=== PATIENT | female | born 1960 | race Hispanic/Latino ===

== ENCOUNTER 2017-07-13 18:56 | Inpatient (IN) | payer MEDICARE, MEDICAID ==
[2017-07-13 21:18] LABS: #Basophils 0.1 thou/uL (0.0-0.2); #Lymphocytes 2.6 thou/uL (1.20-3.40); #Monocytes 0.4 thou/uL (0.11-0.59); #Neutrophils 5.1 thou/uL (1.40-6.50); %Basophils 1.2 % (0.0-1.0); %Eosinophils 0.2 % (0.0-10.0); %Lymphocytes 31.5 % (21.0-51.0); Hematocrit 43.2 % (36.0-47.0); Mean Platelet Volume 6.6 fL (7.4-10.4); Red Blood Cell (RBC) Count 4.75 mill/uL (4.20-5.40); White Blood Cell (WBC) Count 8.1 thou/uL (4.8-10.8)
--- NOTE | 2017-07-13 21:21 | RAD ---
CHEST ONE VIEW PORTABLE: History: 57-year-old female with history of epilepsy. FINDINGS: Monitor leads overlie the chest. Inspiration is suboptimal with some vascular crowding in the lower lungs. No confluent pneumonia, overt edema, or pleural effusion. IMPRESSION: Poor inspiratory effort with some vascular crowding in the lung bases. No overt acute intrathoracic disease. No evidence for pneumonia. POS: [facility]
--- NOTE | 2017-07-13 21:25 | CT ---
NONCONTRAST HEAD CT: History: Epilepsy. Medical ==== into [facility] due to [place] and [place] psychiatric boarding. Patient was talking about keeping a knife under her pillow and killing her family. Previous psychiatric admissions. Comparison: None. Technique: Noncontrast head CT is performed from skull base to skull vertex. FINDINGS: No parenchymal hemorrhage, no extraaxial hematoma. No midline shift. Basilar cisterns are patent. Br ain volume is age appropriate. Cortical vega white matter differentiation is preserved. Ventricles and sulci are patent and symmetric. There is hyperostosis from talus interne. Calvarium is intact. Adequate aeration of the sinuses and mastoid air cells. IMPRESSION: No acute intracranial process. POS: [facility]
[2017-07-13 21:38] LABS: ALT (SGPT) 50 U/L (8-55); AST (SGOT) 49 U/L (5-34); Alkaline Phosphatase 95 U/L (40-150); Anion Gap 12 mmol/L (10-20); BUN (Urea Nitrogen) 17 mg/dL (9.8-20.1); Bilirubin, Total 0.4 mg/dL (0.2-1.2); Calc. Creatinine Clearance 0 mL/min (70-130); Calcium 9.7 mg/dL (7.8-10.44); Carbon Dioxide 25 mmol/L (22-29); Chloride 104 mmol/L (98-107); Estimated GFR-MDRD 85; Globulin 3.6 g/dL (2.4-3.5); Protein, Total 7.5 g/dL (6.0-8.3)
[2017-07-13 21:56] LABS: Bilirubin Negative (Negative); Blood, Urine Negative (Negative); Glucose, Urine (Dipstick) Negative (Negative); Ketone, Urine Negative (Negative); Nitrite Negative (Negative); Protein, Urine (Dipstick) Negative (Neg-Trace); Urobilinogen 0.2 mg/dL (0.2-1.0)
[2017-07-13 21:58] LABS: Bacteria/HPF 2+ HPF (None Seen); RBC/HPF 0-3 HPF (0-3); Squamous Epithelial 21-50 HPF (0-3)
[2017-07-13 21:59] LABS: Hyaline Casts/LPF 0-3 HYALINE CAST LPF (0-3 Hyaline)
[2017-07-14] MEDS ORDERED: Lorazepam 2 MG/ML VIAL SLOW IVP PRN ×2 (00:03→15:09)
[2017-07-14] MEDS ORDERED: cefTRIAXone\\ROCEPHIN 1 GM VIAL ONE (00:41)
[2017-07-14] MEDS ORDERED: levETIRAcetam In NaCl (Iso-Os) 1,000 MG in Premix Bag 1 BAG IVPB SCH ×2 (00:45)
[2017-07-14] MEDS ORDERED: Acetaminophen 325 MG TAB PO PRN (02:53)
[2017-07-14] MEDS ORDERED: Ondansetron HCl/PF 4 MG/2 ML Vial IVP PRN ×2 (02:53→05:44)
[2017-07-14] MEDS ORDERED: Ondansetron ODT 4 MG TAB SL PRN (02:53)
[2017-07-14] MEDS ORDERED: cefTRIAXone\\ROCEPHIN 1 GM in Sodium Chloride 0.9% 100 ML IVPB SCH (05:15)
[2017-07-14] MEDS ORDERED: Senokot 8.6 MG TAB PO PRN (05:44)
[2017-07-14] MEDS ORDERED: Benzonatate 100 MG CAP PO PRN (05:44)
[2017-07-14] MEDS ORDERED: Diabetic Tussin 200 MG/10 ML UDCUP PO PRN (05:44)
[2017-07-14] MEDS ORDERED: Nitroglycerin 0.4 MG TAB (25 Tab Bottle) SL PRN (05:44)
[2017-07-14] MEDS ORDERED: hydrALAZINE 20 MG/ML VIAL SLOW IVP PRN (05:44)
[2017-07-14] MEDS ORDERED: Loratadine 10 MG TAB PO PRN (05:44)
[2017-07-14] MEDS ORDERED: cloNIDine 0.1 MG TAB PO PRN (05:44)
[2017-07-14] MEDS ORDERED: Insulin Regular 300 UNITS/3 ML VIAL SC PRN (05:46)
[2017-07-14] MEDS ORDERED: Dextrose 5% in Water 1,000 ML IV PRN (05:46)
[2017-07-14] MEDS ORDERED: Dextrose 50% Abboject 50 ML SYRINGE SLOW IVP PRN (05:46)
[2017-07-14] MEDS ORDERED: Cefepime 1 GM, Admixture Fee 1 EACH in Sterile Water 10 ML SLOW IVP SCH (08:30)
[2017-07-14] MEDS ORDERED: clonazePAM 0.5 MG TAB PO SCH ×2 (09:00)
[2017-07-14] MEDS ORDERED: levETIRAcetam 500 MG TAB PO SCH (09:00)
[2017-07-14] MEDS ORDERED: FLU VACC QS2017-18 36 mo. & older 0.5 ML SYRINGE IM ONE (09:00)
[2017-07-14] MEDS: Escitalopram Oxalate 20 mg Tablet PO SCH (09:20)
[2017-07-14] MEDS: Lisinopril 5 MG TAB PO SCH (09:21)
[2017-07-14] MEDS: Sodium Chloride 0.9% 1,000 ML IV SCH ×2 (09:21→21:02)
--- NOTE | 2017-07-14 09:32 | HP ---
DATE OF ADMISSION: 07/14/2017 PRIMARY CARE PHYSICIAN: Dr. Fletcher. Patient is a city call. CHIEF COMPLAINT: Seizures and urinary tract infection. HISTORY OF PRESENT ILLNESS: Ms. Frankel is a 57-year-old female with past medical history of seizure disorder, hypothyroidism, dyslipidemia, hypertension, diabetes, who presented as a transfer from [facility] for seizures. History is obtained by the record review as the patient is no nconversant or is significantly altered and is not providing any history at this time. Further deta ils obtained by discussion with admitting ER physician, Dr. Flores. According to the reports, Ms. Frankel has been admitted at [facility] for suicidal and homicidal ideation. She is currently on the [facility] list for psychiatric admission. She has been on the psychiatric boarding since 07/06/2017. Hist ory of multiple previous psychiatric administration with psychotic . [facility] has evaluated the patient and she is waiting for placement. According to the reports, the patient had about a 15-20 second episode of seizure-like activity with facial muscles tightening up and face contorting and some jerky movements of the eyes and hands. S he is on Keppra 500 b.i.d. and Clonazepam 0.5 mg p.o. b.i.d., which she was receiving at the [facility]. There was no urinary or fecal incontinence, no tongue biting. She was transferred here for [facility] seizures as apparently [facility] has no neurologist site controller. In the emergency room, the patient was found to have similar episodes. She has received IV dose of Keppra. She was found to also have a urinary tract infection and received Rocephin. She is otherwi se hemodynamically stable and is being admitted to the stroke floor for possible breakthrough seizur es. There is some question that the patient started to have seizure-like activity once she was bein g cleared for [facility] admission. This raises the question of secondary gain. PAST MEDICAL HISTORY: 1. Diabetes mellitus type 2. 2. Seizure disorder. 3. Hypertension. 4. Dyslipidemia. 5. Hypothyroidism. 6. Spinal stenosis. PAST SURGICAL HISTORY: Unknown. PSYCHIATRIC HISTORY: Bipolar, schizophrenia. ALLERGIES: ALPRAZOLAM, HALDOL and XANAX. CURRENT MEDICATIONS: As listed in the ER records include Lexapro 20 mg daily, clonazepam 0.5 mg b.i .d., Vistaril 50 mg at bedtime, glipizide 5 mg daily, levothyroxine 100 mcg daily, lisinopril 10 mg daily, pravastatin 40 mg daily, Keppra 500 p.o. b.i.d., metformin 1000 mg b.i.d. FAMILY HISTORY: Unable to obtain as the patient does not reply the answers to the questions appropr iately. SOCIAL HISTORY: Unable to obtain for the same reason as stated above. REVIEW OF SYSTEMS: Largely unobtainable, because the patient is not responding to any questions. S he, however, denied any discomfort at this time and on repeated asking she had one word seizure. PHYSICAL EXAMINATION: VITAL SIGNS: Stable, blood pressure 148/94, saturating 94% on room air, respirations 18, pulse 90, temperature 98.5. GENERAL: The patient is awake and appears alert and oriented to self at the very least. She has ge neralized shaking of her left arm, which stops when she holds it with her right arm. No acute distr ess. Appears nontoxic. HEENT: Mucous membrane is moist and pink. No oropharyngeal exudate or erythema. Head is normoceph alic, atraumatic. Pupils are equal, reactive to light and accommodation. Extraocular movements int act. NECK: Supple without any lymphadenopathy, JVD or bruit. CHEST: Clear to auscultation without any wheezing, rales or rhonchi. Rate and rhythm is regular wi thout any murmur, rubs or gallops. ABDOMEN: Obese, soft, nontender, nondistended with positive bowel sounds. EXTREMITIES: Free of any cyanosis, clubbing, or edema. NEUROLOGIC: No muscle weakness. She has pill rolling tremors in her left hand, which stopped as so on as she engages her hand. Affect appears flat, difficulty with concentration. The patient is abl e to tell me the name of her children and her name, but is unable to tell me where she is and why an d does not answer most of my questions appropriately. SKIN: Free of any rashes or bruises. Feel warm and dry to touch. PSYCHIATRIC: Flat affect. LABORATORY DATA: CBC is unremarkable. Serum chemistry shows blood sugar of 131, otherwise unremark able. Prolactin 6.18. Urinalysis are WBC and bacteria along with multiple squamous epithelial cell s, Keppra level of 6.2. IMPRESSION AND PLAN: 1. Breakthrough seizures versus psychiatric manifestation. At this time, it is unclear if the fortunato ent actually had seizures. She seemed to be having these movements during my interview as well and she was able to describe it in one word \\\\"seizure\\\\". Her prolactin level is normal as well as her levetiracetam level. She did get one dose of IV Keppra in the emergency room and, at this time, we will restart her on oral medications. Add p.r.n. Ativan for any breakthrough seizures. At this ti me, it is difficult to tell whether this is seizure or just psychiatric manifestation of her illness . We will consult Neurology for further recommendations. 2. Urinary tract infection, treated with IV antibiotic and send urine for culture. 3. Diabetes mellitus. The patient will be started on insulin sliding scale and we will hold her me tformin as she cannot reliably eat. Monitor a.c. and at bedtime Accu-Cheks and add normal saline. 4. History of hypertension, currently controlled. Restart home medications once confirmed. 5. History of homicidal and suicidal ideations. The patient will be released to [facility] after her sei zure episodes are controlled or the breakthrough seizures are ruled out.
[2017-07-14] MEDS: clonazePAM 0.5 MG TAB PO SCH ×2 (16:39→21:09)
[2017-07-14] MEDS: traMADol HCl 50 MG TAB PO PRN (16:59)
[2017-07-14] MEDS: hydrOXYzine Pamoate 25 mg Capsule PO SCH (21:09)
--- NOTE | 2017-07-15 00:47 | CON ---
DATE OF CONSULTATION: 07/14/2017 REFERRING PROVIDER: Dr. Lilliana Colindres. REASON FOR CONSULTATION: Seizure. HISTORY OF PRESENT ILLNESS: Ms. Frankel is a 57-year-old female who has been considered for evaluatio n of seizure. History is obtained from the patient's medical chart as the patient is a very poor hi storian and does not provide much of the information during my conversation. Apparently, the patien t was admitted to [facility] for suicidal ideation and severe depression. She w as supposed to be transferred to [facility] for treatment of her underlying depression. She was supposed to be discharged to a facility; however, prior to being transferred, she developed a seizure-like ep isode. Due to the fact that the [facility] does not have any neurological facul ty environmental quality analyst, the patient was transferred over here. According to nurse, the patient has been having jerking episode intermittently. These episodes are waxing and waning. During that time, she is abl e to converse and able to follow commands. When I asked when she started having seizure, she report ed that she started having seizures after she was upset about something. When asked how long she gaytan d seizures for, she kept repeating the same answer that she has seizures only when she is getting up set. PAST MEDICAL HISTORY: Significant for hypertension, diabetes, dyslipidemia, hypothyroidism, history of depression and anxiety, bipolar and schizophrenia, and questionable seizure disorder. SOCIAL HISTORY: She does not answer the question. CURRENT MEDICATIONS: Please review MAR. ALLERGIES: Include HALDOL and XANAX. FAMILY HISTORY: Noncontributory. REVIEW OF SYSTEMS: Unable to perform. PHYSICAL EXAMINATION: VITAL SIGNS: Blood pressure 165/91, pulse of 106, temperature of 98.4, respirations of 16, O2 sats of 95% on room air. GENERAL: Well-developed, well-nourished female, in no apparent distress. RESPIRATORY: Clear to auscultation bilaterally. CARDIOVASCULAR: Regular rate and rhythm. NEUROLOGIC: Mental status: The patient is awake, alert, oriented x3. Speech and language appears fluent. Cranial nerves: Pupils are 3 mm and reactive. Visual choi are full to threat. Extraocu lar muscles are intact. No nystagmus is noted. Face is symmetric. Tongue and uvula are midline. Motor exam showed normal tone and bulk, with a 5/5 strength in both upper and lower extremities. Sh justina was noted to have nonrhythmic jerking of the left upper extremity that was waxing and waning that especially was resolved when I was able to distract her as well as when I asked her to close her eye s and lift her arm up. Sensory: She responds to pain in both upper and lower extremities. Deep te ndon reflexes 2+ reflexes in both upper and lower extremities. Babinski: Plantar responses flexion bilaterally. Coordination: Gait and Romberg could not be tested. LABORATORY DATA: Reviewed, which included CBC, CMP, urinalysis, Keppra level, which is significant for urinalysis showing moderate leukocyte esterase, 7-10 wbc and 2+ bacteria. IMAGING STUDIES: CT head without contrast was reviewed, which showed no acute intracranial abnormal ity. IMPRESSION: 1. Convulsions. 2. Depression. 3. Most probable conversion disorder. ASSESSMENT AND PLAN: Ms. Frankel is a 57-year-old female who presented with the seizure-like episode. During my evaluation, she was having waxing and waning episodes of left arm jerking, and during that period, she was able to converse appropriately and able to follow commands. 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 I would obtain EEG on tomorrow morning, and if that does n ot show any seizure-like activity, then no further workup needs to be performed. For now, continue on the Keppra 500 mg b.i.d. However, if the EEG is normal with seizure-like activity that she is gaytan ving, then she can be discontinued on Keppra as this would not be helpful in her ongoing treatment o f depression. Thank you for your consultation.
[2017-07-15] MEDS ORDERED: cefTRIAXone\\ROCEPHIN 1 GM, Syringe 0.4 ML in Sterile Water 9.6 ML SLOW IVP SCH (01:00)
[2017-07-15] MEDS: clonazePAM 0.5 MG TAB PO SCH ×2 (08:42→20:24)
[2017-07-15] MEDS: Valbenazine Tosylate [Ingrezza] 40 MG PO SCH (08:42)
[2017-07-15] MEDS: Lisinopril 5 MG TAB PO SCH (08:42)
[2017-07-15] MEDS: Escitalopram Oxalate 20 mg Tablet PO SCH (08:42)
[2017-07-15] MEDS: Sodium Chloride 0.9% 1,000 ML IV SCH ×2 (10:08→23:34)
--- NOTE | 2017-07-15 13:13 | PDOC.PN ---
- Subjective Encounter Start Date: 07/15/17 Encounter Start Time: 07:00 Pt seen for followup re seizure. Reports having ongoing seizures. No chest pain, shortness of breath, fevers or chills. - Objective MAR Reviewed: Yes Vital Signs & Weight: Vital Signs (12 hours) Temp Pulse Resp BP Pulse Ox 07/15/17 11:15 98.3 F 86 18 148/80 H 94 L 07/15/17 08:42 86 07/15/17 08:00 99.6 F 86 18 07/15/17 07:10 99.6 F 86 16 147/86 H 92 L 07/15/17 03:09 98.5 F 90 12 157/89 H 93 L Weight Weight 200 lb 11.2 oz I&O: 07/14/17 07/15/17 07/16/17 06:59 06:59 06:59 Intake Total 958 Balance 958 Result Diagrams: 07/13/17 21:09 07/13/17 21:09 Additional Labs: Accuchecks 07/15/17 07/15/17 07/14/17 10:41 06:08 20:46 POC Glucose 127 H 121 H 103 07/14/17 17:25 POC Glucose 113 H EKG Reviewed by me: Yes (Tele: NSR) Phys Exam - Physical Examination Obese HEENT: PERRLA, moist MMs, sclera anicteric, oral pharynx no lesions Neck: no nodes, no JVD, supple, full ROM Respiratory: no wheezing, no rales, no rhonchi, clear to auscultation bilateral Cardiovascular: RRR, no significant murmur, no rub Gastrointestinal: soft, non-tender, no distention, positive bowel sounds Musculoskeletal: pulses present Neurological: moves all 4 limbs Lymphatic: no nodes Psychiatric: normal affect Deviation from normal: Oriented to person and place, not to time Skin: no rash, normal turgor, cap refill <2 seconds Dx/Plan (1) Seizure Code(s): R56.9 - UNSPECIFIED CONVULSIONS Status: Acute (2) DM2 (diabetes mellitus, type 2) Status: Chronic (3) HTN (hypertension) Code(s): I10 - ESSENTIAL (PRIMARY) HYPERTENSION Status: Chronic (4) Dyslipidemia Code(s): E78.5 - HYPERLIPIDEMIA, UNSPECIFIED Status: Chronic (5) Hypothyroidism Code(s): E03.9 - HYPOTHYROIDISM, UNSPECIFIED Status: Chronic (6) Spinal stenosis Code(s): M48.00 - SPINAL STENOSIS, SITE UNSPECIFIED Status: Chronic - Plan * . seizure vs pseudoseizure. Continue Keppra, await EEG. Continue accuchecks, insulin sliding scale. Monitor vital signs, titrate antihypertensives as needed. Check TSH Review of Systems - Review of Systems Constitutional: negative: Fever, Chills, Sweats, Weakness, Malaise Eyes: Vision Change Respiratory: negative: Cough, Dry, Shortness of Breath, Hemoptysis, SOB with Excertion, Pleuritic Pain, Sputum, Wheezing Cardiovascular: negative: Chest Pain, Palpitations, Orthopnea, Paroxysmal Noc. Dyspnea, Edema, Light Headedness Gastrointestinal: negative: Nausea, Vomiting, Abdominal Pain, Diarrhea, Constipation, Melena, Hematochezia Genitourinary: negative: Dysuria, Frequency, Incontinence, Hematuria, Retention Neurological: Seizures. negative: Weakness, Numbness, Incoordination, Change in Speech, Confusion - Medications/Allergies Allergies/Adverse Reactions: Allergies Allergy/AdvReac Type Severity Reaction Status Date / Time alprazolam [From Xanax] Allergy Verified 07/14/17 00:07 haloperidol [From Haldol] Allergy Verified 07/14/17 00:07 zolpidem [From Ambien] Allergy Verified 07/14/17 02:35 Medications: Current Medications Benzonatate (Tessalon) 100 mg PO Q4H PRN PRN Reason: Cough Bisacodyl (Dulcolax) 10 mg PO DAILYPRN PRN PRN Reason: Constipation Clonazepam (Klonopin) 0.5 mg PO BID [facility] Last Admin: 07/15/17 08:42 Dose: Not Given Clonidine (Catapres) 0.1 mg PO Q4H PRN PRN Reason: Systolic BP > 180 Dextrose/Water (Dextrose 50%) 25 gm SLOW IVP PRN PRN PRN Reason: Hypoglycemia Escitalopram Oxalate (Lexapro) 20 mg PO DAILY [facility] Last Admin: 07/15/17 08:42 Dose: Not Given Glucagon (Glucagon) 1 mg IM PRN PRN PRN Reason: Hypoglycemia Guaifenesin (Robitussin Sf) 200 mg PO Q4H PRN PRN Reason: Cough Hydralazine HCl (Apresoline) 10 mg SLOW IVP Q4H PRN PRN Reason: Systolic BP > 180 Hydroxyzine Pamoate (Vistaril) 25 mg PO HS [facility] Last Admin: 07/14/17 21:09 Dose: Not Given Sodium Chloride (Normal Saline 0.9%) 1,000 mls @ 75 mls/hr IV .[id number] [facility] Last Admin: 07/15/17 10:08 Dose: 1,000 mls Dextrose/Water (D5w) 1,000 mls @ 0 mls/hr IV .Q0M PRN; As Directed PRN Reason: Hypoglycemia Levetiracetam 500 mg/ Device 100 mls @ 200 mls/hr IVPB BID [facility] Last Admin: 07/15/17 10:07 Dose: 100 mls Insulin Human Regular (Humulin R) 0 units SC .MODERATE SLIDING SC PRN PRN Reason: Moderate Correctional Scale Insulin Human Regular (Humulin R) 0 units SC .BEDTIME SLIDING SC PRN PRN Reason: Bedtime Correctional Scale Lisinopril (Zestril) 10 mg PO DAILY [facility] Last Admin: 07/15/17 08:42 Dose: Not Given Loratadine (Claritin) 10 mg PO DAILYPRN PRN PRN Reason: Sinus Symptoms Lorazepam (Ativan) 1 mg SLOW IVP Q2H PRN PRN Reason: Seizures Nitroglycerin (Nitrostat) 0.4 mg SL Q5MIN PRN PRN Reason: Chest Pain Ondansetron HCl (Zofran) 4 mg IVP Q6H PRN PRN Reason: Nausea/Vomiting Valbenazine Tosylate ([Ingrezza] 40 Mg) 0 each PO DAILY [facility] Last Admin: 07/15/17 08:42 Dose: Not Given Senna (Senokot) 2 tab PO HSPRN PRN PRN Reason: Constipation Tramadol HCl (Ultram) 50 mg PO Q4H PRN PRN Reason: Moderate Pain (4-6) Last Admin: 07/14/17 16:59 Dose: 50 mg
[2017-07-15] MEDS: traMADol HCl 50 MG TAB PO PRN (20:21)
[2017-07-15] MEDS: hydrOXYzine Pamoate 25 mg Capsule PO SCH (20:24)
[2017-07-16] MEDS: Escitalopram Oxalate 20 mg Tablet PO SCH (08:56)
[2017-07-16] MEDS: Lisinopril 5 MG TAB PO SCH (08:56)
[2017-07-16] MEDS: clonazePAM 0.5 MG TAB PO SCH ×2 (08:56→20:37)
[2017-07-16] MEDS ORDERED: levETIRAcetam 500 MG TAB PO SCH (09:00)
--- NOTE | 2017-07-16 10:00 | PDOC.PN ---
- Subjective Encounter Start Date: 07/16/17 Encounter Start Time: 07:00 Pt seen for followup re: diabetes mellitus 2. Denies chest pain, shortness of breath, fever or chills. No nausea or vomiting. - Objective MAR Reviewed: Yes Vital Signs & Weight: Vital Signs (12 hours) Temp Pulse Resp BP BP BP Pulse Ox 07/16/17 08:56 67 122/84 07/16/17 08:00 98.3 F 67 18 07/16/17 07:00 98.3 F 67 18 122/84 95 07/16/17 03:49 98.3 F 74 18 113/66 94 L 07/16/17 00:03 98.0 F 76 18 132/73 94 L Weight Weight 199 lb 12.8 oz I&O: 07/15/17 07/16/17 07/17/17 06:59 06:59 06:59 Intake Total 958 1855 Balance 958 1855 Result Diagrams: 07/13/17 21:09 07/13/17 21:09 Additional Labs: Accuchecks 07/16/17 07/15/17 07/15/17 05:39 20:28 17:06 POC Glucose 115 H 177 H 105 07/15/17 10:41 POC Glucose 127 H EKG Reviewed by me: Yes (Tele: NSR) Phys Exam - Physical Examination Obesity HEENT: moist MMs Neck: supple Respiratory: clear to auscultation bilateral Cardiovascular: RRR Gastrointestinal: soft Musculoskeletal: pulses present Neurological: moves all 4 limbs Psychiatric: normal affect Skin: no rash Dx/Plan (1) DM2 (diabetes mellitus, type 2) Status: Chronic (2) HTN (hypertension) Code(s): I10 - ESSENTIAL (PRIMARY) HYPERTENSION Status: Chronic (3) Dyslipidemia Code(s): E78.5 - HYPERLIPIDEMIA, UNSPECIFIED Status: Chronic (4) Hypothyroidism Code(s): E03.9 - HYPOTHYROIDISM, UNSPECIFIED Status: Chronic (5) Spinal stenosis Code(s): M48.00 - SPINAL STENOSIS, SITE UNSPECIFIED Status: Chronic (6) Seizure Code(s): R56.9 - UNSPECIFIED CONVULSIONS Status: Resolved - Plan out of bed/ambulate * . Continue accuchecks, insulin sliding scale. Discussed with neurology service, EEG is normal. Discontinue keppra. Await [facility] input re: transfer. Transfer to medical floor. Review of Systems - Review of Systems Respiratory: negative: Cough, Dry, Shortness of Breath, Hemoptysis, SOB with Excertion, Pleuritic Pain, Sputum, Wheezing Cardiovascular: negative: Chest Pain, Palpitations, Orthopnea, Paroxysmal Noc. Dyspnea, Edema, Light Headedness Gastrointestinal: negative: Nausea, Vomiting, Abdominal Pain, Diarrhea, Constipation, Melena, Hematochezia - Medications/Allergies Allergies/Adverse Reactions: Allergies Allergy/AdvReac Type Severity Reaction Status Date / Time alprazolam [From Xanax] Allergy Verified 07/14/17 00:07 haloperidol [From Haldol] Allergy Verified 07/14/17 00:07 zolpidem [From Ambien] Allergy Verified 07/14/17 02:35 Medications: Current Medications Benzonatate (Tessalon) 100 mg PO Q4H PRN PRN Reason: Cough Bisacodyl (Dulcolax) 10 mg PO DAILYPRN PRN PRN Reason: Constipation Clonazepam (Klonopin) 0.5 mg PO BID [facility] Last Admin: 07/16/17 08:56 Dose: 0.5 mg Clonidine (Catapres) 0.1 mg PO Q4H PRN PRN Reason: Systolic BP > 180 Dextrose/Water (Dextrose 50%) 25 gm SLOW IVP PRN PRN PRN Reason: Hypoglycemia Escitalopram Oxalate (Lexapro) 20 mg PO DAILY [facility] Last Admin: 07/16/17 08:56 Dose: 20 mg Glucagon (Glucagon) 1 mg IM PRN PRN PRN Reason: Hypoglycemia Guaifenesin (Robitussin Sf) 200 mg PO Q4H PRN PRN Reason: Cough Hydralazine HCl (Apresoline) 10 mg SLOW IVP Q4H PRN PRN Reason: Systolic BP > 180 Hydroxyzine Pamoate (Vistaril) 25 mg PO HS [facility] Last Admin: 07/15/17 20:24 Dose: 25 mg Dextrose/Water (D5w) 1,000 mls @ 0 mls/hr IV .Q0M PRN; As Directed PRN Reason: Hypoglycemia Insulin Human Regular (Humulin R) 0 units SC .MODERATE SLIDING SC PRN PRN Reason: Moderate Correctional Scale Insulin Human Regular (Humulin R) 0 units SC .BEDTIME SLIDING SC PRN PRN Reason: Bedtime Correctional Scale Lisinopril (Zestril) 10 mg PO DAILY [facility] Last Admin: 07/16/17 08:56 Dose: 10 mg Loratadine (Claritin) 10 mg PO DAILYPRN PRN PRN Reason: Sinus Symptoms Lorazepam (Ativan) 1 mg SLOW IVP Q2H PRN PRN Reason: Seizures Nitroglycerin (Nitrostat) 0.4 mg SL Q5MIN PRN PRN Reason: Chest Pain Ondansetron HCl (Zofran) 4 mg IVP Q6H PRN PRN Reason: Nausea/Vomiting Valbenazine Tosylate ([Ingrezza] 40 Mg) 0 each PO DAILY [facility] Last Admin: 07/15/17 08:42 Dose: Not Given Senna (Senokot) 2 tab PO HSPRN PRN PRN Reason: Constipation Sodium Chloride (Flush - Normal Saline) 10 ml IVF Q12HR [facility] Sodium Chloride (Flush - Normal Saline) 10 ml IVF PRN PRN PRN Reason: Saline Flush Tramadol HCl (Ultram) 50 mg PO Q4H PRN PRN Reason: Moderate Pain (4-6) Last Admin: 07/15/17 20:21 Dose: 50 mg
[2017-07-16] MEDS: Valbenazine Tosylate [Ingrezza] 40 MG PO SCH (10:07)
[2017-07-16] MEDS: traMADol HCl 50 MG TAB PO PRN (20:37)
[2017-07-16] MEDS: hydrOXYzine Pamoate 25 mg Capsule PO SCH (20:37)
[2017-07-17] MEDS: Valbenazine Tosylate [Ingrezza] 40 MG PO SCH (10:26)
[2017-07-17] MEDS: Escitalopram Oxalate 20 mg Tablet PO SCH (10:27)
[2017-07-17] MEDS: clonazePAM 0.5 MG TAB PO SCH ×2 (10:27→20:49)
[2017-07-17] MEDS: Lisinopril 5 MG TAB PO SCH (10:27)
--- NOTE | 2017-07-17 12:56 | PDOC.PN ---
- Subjective Encounter Start Date: 07/17/17 Encounter Start Time: 07:20 Pt seen for followup re: diabetes mellitus. No nausea, vomiting or diarrhea. - Objective MAR Reviewed: Yes Vital Signs & Weight: Vital Signs (12 hours) Temp Pulse Resp BP Pulse Ox 07/17/17 11:00 98.7 F 61 18 159/97 H 95 07/17/17 10:27 69 07/17/17 08:00 98.6 F 69 14 07/17/17 07:55 98.6 F 69 14 118/58 L 92 L 07/17/17 03:28 97.9 F 60 14 127/65 94 L Weight Weight 208 lb I&O: 07/16/17 07/17/17 07/18/17 06:59 06:59 06:59 Intake Total 1855 700 Balance 1855 700 Result Diagrams: 07/13/17 21:09 07/13/17 21:09 Additional Labs: Accuchecks 07/17/17 07/17/17 07/16/17 10:31 05:41 20:41 POC Glucose 111 H 118 H 142 H 07/16/17 16:38 POC Glucose 79 Phys Exam - Physical Examination Obesity HEENT: moist MMs Neck: supple Respiratory: clear to auscultation bilateral Cardiovascular: RRR Gastrointestinal: soft Neurological: moves all 4 limbs Psychiatric: normal affect Skin: no rash Dx/Plan (1) DM2 (diabetes mellitus, type 2) Status: Chronic (2) HTN (hypertension) Code(s): I10 - ESSENTIAL (PRIMARY) HYPERTENSION Status: Chronic (3) Dyslipidemia Code(s): E78.5 - HYPERLIPIDEMIA, UNSPECIFIED Status: Chronic (4) Hypothyroidism Code(s): E03.9 - HYPOTHYROIDISM, UNSPECIFIED Status: Chronic (5) Spinal stenosis Code(s): M48.00 - SPINAL STENOSIS, SITE UNSPECIFIED Status: Chronic (6) Seizure Code(s): R56.9 - UNSPECIFIED CONVULSIONS Status: Resolved - Plan * . Monitor vital signs, titrate antihypertensives as needed. Continue accuchecks, insulin sliding scale. Okay to transfer pt to [facility] when accepted. Review of Systems - Review of Systems Respiratory: negative: Cough, Dry, Shortness of Breath, Hemoptysis, SOB with Excertion, Pleuritic Pain, Sputum, Wheezing Cardiovascular: negative: Chest Pain, Palpitations, Orthopnea, Paroxysmal Noc. Dyspnea, Edema, Light Headedness - Medications/Allergies Allergies/Adverse Reactions: Allergies Allergy/AdvReac Type Severity Reaction Status Date / Time alprazolam [From Xanax] Allergy Verified 07/14/17 00:07 haloperidol [From Haldol] Allergy Verified 07/14/17 00:07 zolpidem [From Ambien] Allergy Verified 07/14/17 02:35 Medications: Current Medications Benzonatate (Tessalon) 100 mg PO Q4H PRN PRN Reason: Cough Bisacodyl (Dulcolax) 10 mg PO DAILYPRN PRN PRN Reason: Constipation Clonazepam (Klonopin) 0.5 mg PO BID [facility] Last Admin: 07/17/17 10:27 Dose: 0.5 mg Clonidine (Catapres) 0.1 mg PO Q4H PRN PRN Reason: Systolic BP > 180 Dextrose/Water (Dextrose 50%) 25 gm SLOW IVP PRN PRN PRN Reason: Hypoglycemia Escitalopram Oxalate (Lexapro) 20 mg PO DAILY [facility] Last Admin: 07/17/17 10:27 Dose: 20 mg Glucagon (Glucagon) 1 mg IM PRN PRN PRN Reason: Hypoglycemia Guaifenesin (Robitussin Sf) 200 mg PO Q4H PRN PRN Reason: Cough Hydralazine HCl (Apresoline) 10 mg SLOW IVP Q4H PRN PRN Reason: Systolic BP > 180 Hydroxyzine Pamoate (Vistaril) 25 mg PO [facility] Last Admin: 07/16/17 20:37 Dose: 25 mg Dextrose/Water (D5w) 1,000 mls @ 0 mls/hr IV .Q0M PRN; As Directed PRN Reason: Hypoglycemia Insulin Human Regular (Humulin R) 0 units SC .MODERATE SLIDING SC PRN PRN Reason: Moderate Correctional Scale Insulin Human Regular (Humulin R) 0 units SC .BEDTIME SLIDING SC PRN PRN Reason: Bedtime Correctional Scale Lisinopril (Zestril) 10 mg PO DAILY [facility] Last Admin: 07/17/17 10:27 Dose: 10 mg Loratadine (Claritin) 10 mg PO DAILYPRN PRN PRN Reason: Sinus Symptoms Lorazepam (Ativan) 1 mg SLOW IVP Q2H PRN PRN Reason: Seizures Nitroglycerin (Nitrostat) 0.4 mg SL Q5MIN PRN PRN Reason: Chest Pain Ondansetron HCl (Zofran) 4 mg IVP Q6H PRN PRN Reason: Nausea/Vomiting Valbenazine Tosylate ([Ingrezza] 40 Mg) 0 each PO DAILY [facility] Last Admin: 07/17/17 10:26 Dose: 1 each Senna (Senokot) 2 tab PO HSPRN PRN PRN Reason: Constipation Sodium Chloride (Flush - Normal Saline) 10 ml IVF Q12HR [facility] Last Admin: 07/17/17 10:27 Dose: Not Given Sodium Chloride (Flush - Normal Saline) 10 ml IVF PRN PRN PRN Reason: Saline Flush Tramadol HCl (Ultram) 50 mg PO Q4H PRN PRN Reason: Moderate Pain (4-6) Last Admin: 07/16/17 20:37 Dose: 50 mg
[2017-07-17] MEDS: traMADol HCl 50 MG TAB PO PRN (17:26)
[2017-07-17] MEDS: hydrOXYzine Pamoate 25 mg Capsule PO SCH (20:49)
[2017-07-18] MEDS: traMADol HCl 50 MG TAB PO PRN (06:55)
[2017-07-18] MEDS: Lisinopril 5 MG TAB PO SCH (08:28)
[2017-07-18] MEDS: clonazePAM 0.5 MG TAB PO SCH ×2 (08:29→20:08)
[2017-07-18] MEDS: Valbenazine Tosylate [Ingrezza] 40 MG PO SCH (08:29)
[2017-07-18] MEDS: Escitalopram Oxalate 20 mg Tablet PO SCH (08:29)
--- NOTE | 2017-07-18 10:51 | PDOC.PN ---
- Subjective Encounter Start Date: 07/18/17 Encounter Start Time: 07:00 Pt seen for followup re; diabetes mellitus. Denies chest pain, shortness of breath, fevers or chills. - Objective MAR Reviewed: Yes Vital Signs & Weight: Vital Signs (12 hours) Temp Pulse Resp BP BP Pulse Ox 07/18/17 08:28 54 L 116/84 07/18/17 08:00 97.9 F 54 L 18 07/18/17 07:12 97.9 F 54 L 18 116/84 93 L 07/18/17 03:37 97.5 F L 53 L 20 111/66 94 L 07/17/17 23:15 98.4 F 62 16 117/62 97 Weight Weight 203 lb 9.6 oz I&O: 07/17/17 07/18/17 07/19/17 06:59 06:59 06:59 Intake Total 700 1000 Balance 700 1000 Result Diagrams: 07/13/17 21:09 07/13/17 21:09 Additional Labs: Accuchecks 07/18/17 07/17/17 07/17/17 06:01 20:30 16:32 POC Glucose 125 H 107 101 Phys Exam - Physical Examination Obese HEENT: moist MMs, oral pharynx no lesions Neck: supple Respiratory: clear to auscultation bilateral Cardiovascular: RRR Gastrointestinal: soft, non-tender Musculoskeletal: pulses present Neurological: moves all 4 limbs Psychiatric: normal affect Skin: no rash Dx/Plan (1) DM2 (diabetes mellitus, type 2) Status: Chronic (2) HTN (hypertension) Code(s): I10 - ESSENTIAL (PRIMARY) HYPERTENSION Status: Chronic (3) Dyslipidemia Code(s): E78.5 - HYPERLIPIDEMIA, UNSPECIFIED Status: Chronic (4) Hypothyroidism Code(s): E03.9 - HYPOTHYROIDISM, UNSPECIFIED Status: Chronic (5) Spinal stenosis Code(s): M48.00 - SPINAL STENOSIS, SITE UNSPECIFIED Status: Chronic (6) Seizure Code(s): R56.9 - UNSPECIFIED CONVULSIONS Status: Resolved - Plan * . Insulin sliding scale and accuchecks to be continued. Ambulate pt. Monitor vital signs. Pt awaiting [facility] bed Review of Systems - Review of Systems Cardiovascular: negative: Chest Pain, Palpitations, Orthopnea, Paroxysmal Noc. Dyspnea, Edema, Light Headedness, Other Gastrointestinal: negative: Nausea, Vomiting, Abdominal Pain, Diarrhea, Constipation, Melena, Hematochezia Genitourinary: negative: Dysuria, Frequency, Incontinence, Hematuria, Retention - Medications/Allergies Allergies/Adverse Reactions: Allergies Allergy/AdvReac Type Severity Reaction Status Date / Time alprazolam [From Xanax] Allergy Verified 07/14/17 00:07 haloperidol [From Haldol] Allergy Verified 07/14/17 00:07 zolpidem [From Ambien] Allergy Verified 07/14/17 02:35 Medications: Current Medications Benzonatate (Tessalon) 100 mg PO Q4H PRN PRN Reason: Cough Bisacodyl (Dulcolax) 10 mg PO DAILYPRN PRN PRN Reason: Constipation Clonazepam (Klonopin) 0.5 mg PO BID [facility] Last Admin: 07/18/17 08:29 Dose: 0.5 mg Clonidine (Catapres) 0.1 mg PO Q4H PRN PRN Reason: Systolic BP > 180 Dextrose/Water (Dextrose 50%) 25 gm SLOW IVP PRN PRN PRN Reason: Hypoglycemia Escitalopram Oxalate (Lexapro) 20 mg PO DAILY [facility] Last Admin: 07/18/17 08:29 Dose: 20 mg Glucagon (Glucagon) 1 mg IM PRN PRN PRN Reason: Hypoglycemia Guaifenesin (Robitussin Sf) 200 mg PO Q4H PRN PRN Reason: Cough Hydralazine HCl (Apresoline) 10 mg SLOW IVP Q4H PRN PRN Reason: Systolic BP > 180 Hydroxyzine Pamoate (Vistaril) [address] [facility] Last Admin: 07/17/17 20:49 Dose: 25 mg Dextrose/Water (D5w) 1,000 mls @ 0 mls/hr IV .Q0M PRN; As Directed PRN Reason: Hypoglycemia Insulin Human Regular (Humulin R) 0 units SC .MODERATE SLIDING SC PRN PRN Reason: Moderate Correctional Scale Insulin Human Regular (Humulin R) 0 units SC .BEDTIME SLIDING SC PRN PRN Reason: Bedtime Correctional Scale Lisinopril (Zestril) 10 mg PO DAILY [facility] Last Admin: 07/18/17 08:28 Dose: 10 mg Loratadine (Claritin) 10 mg PO DAILYPRN PRN PRN Reason: Sinus Symptoms Lorazepam (Ativan) 1 mg SLOW IVP Q2H PRN PRN Reason: Seizures Nitroglycerin (Nitrostat) 0.4 mg SL Q5MIN PRN PRN Reason: Chest Pain Ondansetron HCl (Zofran) 4 mg IVP Q6H PRN PRN Reason: Nausea/Vomiting Valbenazine Tosylate ([Ingrezza] 40 Mg) 0 each PO DAILY [facility] Last Admin: 07/18/17 08:29 Dose: 1 each Senna (Senokot) 2 tab PO HSPRN PRN PRN Reason: Constipation Sodium Chloride (Flush - Normal Saline) 10 ml IVF Q12HR [facility] Last Admin: 07/18/17 08:23 Dose: Not Given Sodium Chloride (Flush - Normal Saline) 10 ml IVF PRN PRN PRN Reason: Saline Flush Tramadol HCl (Ultram) 50 mg PO Q4H PRN PRN Reason: Moderate Pain (4-6) Last Admin: 07/18/17 06:55 Dose: 50 mg
[2017-07-18 11:18] LABS: #Basophils 0.1 thou/uL (0.0-0.2); #Lymphocytes 2.4 thou/uL (1.20-3.40); #Monocytes 0.3 thou/uL (0.11-0.59); %Basophils 0.9 % (0.0-1.0); %Eosinophils 0.4 % (0.0-10.0); %Lymphocytes 35.4 % (21.0-51.0); %Monocytes 4.6 % (0.0-10.0); Mean Platelet Volume 6.6 fL (7.4-10.4); Red Blood Cell (RBC) Count 4.59 mill/uL (4.20-5.40); White Blood Cell (WBC) Count 6.9 thou/uL (4.8-10.8)
[2017-07-18 11:41] LABS: Anion Gap 14 mmol/L (10-20); BUN (Urea Nitrogen) 7 mg/dL (9.8-20.1); Calc. Creatinine Clearance 145 mL/min (70-130); Calcium 9.9 mg/dL (7.8-10.44); Carbon Dioxide 27 mmol/L (22-29); Chloride 102 mmol/L (98-107); Estimated GFR-MDRD Greater than 90
[2017-07-18] MEDS: Bisacodyl 5 MG TAB PO PRN (20:08)
[2017-07-18] MEDS: hydrOXYzine Pamoate 25 mg Capsule PO SCH (20:08)
[2017-07-19] MEDS: clonazePAM 0.5 MG TAB PO SCH ×2 (09:46→21:28)
[2017-07-19] MEDS: Escitalopram Oxalate 20 mg Tablet PO SCH (09:46)
[2017-07-19] MEDS: Valbenazine Tosylate [Ingrezza] 40 MG PO SCH (09:50)
[2017-07-19] MEDS: Lisinopril 5 MG TAB PO SCH (09:53)
--- NOTE | 2017-07-19 12:23 | PDOC.PN ---
- Subjective Encounter Start Date: 07/19/17 Encounter Start Time: 11:00 Subjective: awake, not in distress -: says wants to go home, has a court case on friday to attend -: not fully oriented - Objective MAR Reviewed: Yes Vital Signs & Weight: Vital Signs (12 hours) Temp Pulse Resp BP BP BP Pulse Ox 07/19/17 09:53 75 117/59 L 07/19/17 08:00 98.4 F 75 16 115/55 L 96 07/19/17 04:16 97.6 F 55 L 18 101/53 L 97 07/19/17 04:03 97.6 F 55 L 18 123/76 96 Weight Weight 203 lb 11.2 oz I&O: 07/18/17 07/19/17 07/20/17 06:59 06:59 05:59 Intake Total 1000 600 Balance 1000 600 Result Diagrams: 07/18/17 11:12 07/18/17 11:12 Additional Labs: Accuchecks 07/19/17 07/18/17 07/18/17 04:02 20:13 15:54 POC Glucose 116 H 174 H 82 Phys Exam - Physical Examination HEENT: PERRLA, moist MMs Neck: no JVD, supple Respiratory: no wheezing, no rales Cardiovascular: RRR, no significant murmur Gastrointestinal: soft, non-tender, positive bowel sounds Musculoskeletal: no edema, pulses present Neurological: non-focal, moves all 4 limbs Dx/Plan (1) Suicidal intent Code(s): R45.851 - SUICIDAL IDEATIONS Status: Acute (2) DM2 (diabetes mellitus, type 2) Status: Chronic Qualifiers: Diabetes mellitus complication status: with unspecified complications Diabetes mellitus buttermaker continuous churn insulin use: without long-term use Qualified Code( s): E11.8 - Type 2 diabetes mellitus with unspecified complications Comment: diet controlled (3) Dyslipidemia Code(s): E78.5 - HYPERLIPIDEMIA, UNSPECIFIED Status: Chronic (4) HTN (hypertension) Code(s): I10 - ESSENTIAL (PRIMARY) HYPERTENSION Status: Chronic Qualifiers: Hypertension type: essential hypertension Qualified Code(s): I10 - Essential (primary) hypertension - Plan hemostable -: had pseudoseizure on arrival -: may dc anytime to inpt psych facility if bed becomes available -: [facility] to re-eval if she still needs inpt admission -: not sure if she has enough support system with underlying psych diagnosis * . Review of Systems - Medications/Allergies Allergies/Adverse Reactions: Allergies Allergy/AdvReac Type Severity Reaction Status Date / Time alprazolam [From Xanax] Allergy Verified 07/14/17 00:07 haloperidol [From Haldol] Allergy Verified 07/14/17 00:07 zolpidem [From Ambien] Allergy Verified 07/14/17 02:35 Medications: Current Medications Benzonatate (Tessalon) 100 mg PO Q4H PRN PRN Reason: Cough Bisacodyl (Dulcolax) 10 mg PO DAILYPRN PRN PRN Reason: Constipation Last Admin: 07/18/17 20:08 Dose: 10 mg Clonazepam (Klonopin) 0.5 mg PO BID [facility] Last Admin: 07/19/17 09:46 Dose: 0.5 mg Clonidine (Catapres) 0.1 mg PO Q4H PRN PRN Reason: Systolic BP > 180 Dextrose/Water (Dextrose 50%) 25 gm SLOW IVP PRN PRN PRN Reason: Hypoglycemia Escitalopram Oxalate (Lexapro) 20 mg PO DAILY [facility] Last Admin: 07/19/17 09:46 Dose: 20 mg Glucagon (Glucagon) 1 mg IM PRN PRN PRN Reason: Hypoglycemia Guaifenesin (Robitussin Sf) 200 mg PO Q4H PRN PRN Reason: Cough Hydralazine HCl (Apresoline) 10 mg SLOW IVP Q4H PRN PRN Reason: Systolic BP > 180 Hydroxyzine Pamoate (Vistaril) 25 mg PO [facility] Last Admin: 07/18/17 20:08 Dose: 25 mg Dextrose/Water (D5w) 1,000 mls @ 0 mls/hr IV .Q0M PRN; As Directed PRN Reason: Hypoglycemia Insulin Human Regular (Humulin R) 0 units SC .MODERATE SLIDING SC PRN PRN Reason: Moderate Correctional Scale Insulin Human Regular (Humulin R) 0 units SC .BEDTIME SLIDING SC PRN PRN Reason: Bedtime Correctional Scale Lisinopril (Zestril) 10 mg PO DAILY [facility] Last Admin: 07/19/17 09:53 Dose: 10 mg Loratadine (Claritin) 10 mg PO DAILYPRN PRN PRN Reason: Sinus Symptoms Lorazepam (Ativan) 1 mg SLOW IVP Q2H PRN PRN Reason: Seizures Nitroglycerin (Nitrostat) 0.4 mg SL Q5MIN PRN PRN Reason: Chest Pain Ondansetron HCl (Zofran) 4 mg IVP Q6H PRN PRN Reason: Nausea/Vomiting Valbenazine Tosylate ([Ingrezza] 40 Mg) 0 each PO DAILY [facility] Last Admin: 07/19/17 09:50 Dose: 2 each Senna (Senokot) 2 tab PO HSPRN PRN PRN Reason: Constipation Sodium Chloride (Flush - Normal Saline) 10 ml IVF Q12HR [facility] Last Admin: 07/19/17 09:58 Dose: Not Given Sodium Chloride (Flush - Normal Saline) 10 ml IVF PRN PRN PRN Reason: Saline Flush Tramadol HCl (Ultram) 50 mg PO Q4H PRN PRN Reason: Moderate Pain (4-6) Last Admin: 07/18/17 06:55 Dose: 50 mg
[2017-07-19] MEDS: hydrOXYzine Pamoate 25 mg Capsule PO SCH (21:28)
[2017-07-20] MEDS ORDERED: Ondansetron ODT 4 MG TAB SL PRN (05:21)
[2017-07-20] MEDS: Escitalopram Oxalate 20 mg Tablet PO SCH (08:28)
[2017-07-20] MEDS: clonazePAM 0.5 MG TAB PO SCH ×2 (08:28→20:53)
[2017-07-20] MEDS: Lisinopril 5 MG TAB PO SCH (08:29)
[2017-07-20] MEDS: Valbenazine Tosylate [Ingrezza] 40 MG PO SCH (08:30)
--- NOTE | 2017-07-20 12:53 | PDOC.PN ---
- Subjective Encounter Start Date: 07/20/17 Encounter Start Time: 11:45 Subjective: awake, not in distress - Objective MAR Reviewed: Yes Vital Signs & Weight: Vital Signs (12 hours) Temp Pulse Resp BP BP BP Pulse Ox 07/20/17 11:29 98.4 F 65 18 102/50 L 92 L 07/20/17 08:29 62 127/65 07/20/17 08:00 97.5 F L 62 18 07/20/17 07:37 97.5 F L 62 18 136/59 L 93 L Weight Weight 204 lb 0.012 oz I&O: 07/19/17 07/20/17 07/21/17 07:59 06:59 06:59 Intake Total 240 Balance 240 Result Diagrams: 07/18/17 11:12 07/18/17 11:12 Additional Labs: Accuchecks 07/20/17 07/19/17 07/19/17 04:44 20:12 16:30 POC Glucose 126 H 129 H 119 H 07/19/17 10:57 POC Glucose 117 H Phys Exam - Physical Examination HEENT: PERRLA, moist MMs Neck: no JVD, supple Respiratory: no wheezing, no rales Cardiovascular: RRR, no significant murmur Gastrointestinal: soft, non-tender, positive bowel sounds Musculoskeletal: no edema, pulses present Neurological: non-focal, moves all 4 limbs Dx/Plan (1) Suicidal intent Code(s): R45.851 - SUICIDAL IDEATIONS Status: Acute (2) DM2 (diabetes mellitus, type 2) Status: Chronic Qualifiers: Diabetes mellitus complication status: with unspecified complications Diabetes mellitus exterminator helper termite insulin use: without exterminator helper termite use Qualified Code( s): E11.8 - Type 2 diabetes mellitus with unspecified complications Comment: diet controlled (3) Dyslipidemia Code(s): E78.5 - HYPERLIPIDEMIA, UNSPECIFIED Status: Chronic (4) HTN (hypertension) Code(s): I10 - ESSENTIAL (PRIMARY) HYPERTENSION Status: Chronic Qualifiers: Hypertension type: essential hypertension Qualified Code(s): I10 - Essential (primary) hypertension (5) Schizoaffective disorder Code(s): F25.9 - SCHIZOAFFECTIVE DISORDER, UNSPECIFIED Status: Chronic - Plan pt might benefit from senior living setting -: is awaiting [facility] bed -: has underlying psych disorder -: will ask [facility] to revisit pt for appropriate dc plan * . Review of Systems - Medications/Allergies Allergies/Adverse Reactions: Allergies Allergy/AdvReac Type Severity Reaction Status Date / Time alprazolam [From Xanax] Allergy Verified 07/14/17 00:07 haloperidol [From Haldol] Allergy Verified 07/14/17 00:07 zolpidem [From Ambien] Allergy Verified 07/14/17 02:35 Medications: Current Medications Benzonatate (Tessalon) 100 mg PO Q4H PRN PRN Reason: Cough Bisacodyl (Dulcolax) 10 mg PO DAILYPRN PRN PRN Reason: Constipation Last Admin: 07/18/17 20:08 Dose: 10 mg Clonazepam (Klonopin) 0.5 mg PO BID [facility] Last Admin: 07/20/17 08:28 Dose: 0.5 mg Clonidine (Catapres) 0.1 mg PO Q4H PRN PRN Reason: Systolic BP > 180 Dextrose/Water (Dextrose 50%) 25 gm SLOW IVP PRN PRN PRN Reason: Hypoglycemia Escitalopram Oxalate (Lexapro) 20 mg PO DAILY [facility] Last Admin: 07/20/17 08:28 Dose: 20 mg Glucagon (Glucagon) 1 mg IM PRN PRN PRN Reason: Hypoglycemia Guaifenesin (Robitussin Sf) 200 mg PO Q4H PRN PRN Reason: Cough Hydralazine HCl (Apresoline) 10 mg SLOW IVP Q4H PRN PRN Reason: Systolic BP > 180 Hydroxyzine Pamoate (Vistaril) 25 mg PO HS [facility] Last Admin: 07/19/17 21:28 Dose: 25 mg Dextrose/Water (D5w) 1,000 mls @ 0 mls/hr IV .Q0M PRN; As Directed PRN Reason: Hypoglycemia Insulin Human Regular (Humulin R) 0 units SC .MODERATE SLIDING SC PRN PRN Reason: Moderate Correctional Scale Insulin Human Regular (Humulin R) 0 units SC .BEDTIME SLIDING SC PRN PRN Reason: Bedtime Correctional Scale Lisinopril (Zestril) 10 mg PO DAILY [facility] Last Admin: 07/20/17 08:29 Dose: 10 mg Loratadine (Claritin) 10 mg PO DAILYPRN PRN PRN Reason: Sinus Symptoms Lorazepam (Ativan) 1 mg SLOW IVP Q2H PRN PRN Reason: Seizures Nitroglycerin (Nitrostat) 0.4 mg SL Q5MIN PRN PRN Reason: Chest Pain Ondansetron HCl (Zofran) 4 mg IVP Q6H PRN PRN Reason: Nausea/Vomiting Ondansetron HCl (Zofran Odt) 4 mg SL Q6H PRN PRN Reason: Nausea/Vomiting Last Admin: 07/20/17 06:23 Dose: 4 mg Valbenazine Tosylate ([Ingrezza] 40 Mg) 0 each PO DAILY [facility] Last Admin: 07/20/17 08:30 Dose: 1 each Senna (Senokot) 2 tab PO HSPRN PRN PRN Reason: Constipation Sodium Chloride (Flush - Normal Saline) 10 ml IVF Q12HR [facility] Last Admin: 07/20/17 08:31 Dose: Not Given Sodium Chloride (Flush - Normal Saline) 10 ml IVF PRN PRN PRN Reason: Saline Flush Tramadol HCl (Ultram) 50 mg PO Q4H PRN PRN Reason: Moderate Pain (4-6) Last Admin: 07/18/17 06:55 Dose: 50 mg
[2017-07-20] MEDS: Bisacodyl 5 MG TAB PO PRN (12:55)
[2017-07-20] MEDS: hydrOXYzine Pamoate 25 mg Capsule PO SCH (20:53)
[2017-07-21] MEDS: Lisinopril 5 MG TAB PO SCH (08:10)
[2017-07-21] MEDS: Valbenazine Tosylate [Ingrezza] 40 MG PO SCH (08:10)
[2017-07-21] MEDS: clonazePAM 0.5 MG TAB PO SCH ×2 (08:11→20:25)
[2017-07-21] MEDS: Escitalopram Oxalate 20 mg Tablet PO SCH (08:11)
--- NOTE | 2017-07-21 12:18 | PDOC.PN ---
- Subjective Encounter Start Date: 07/21/17 Encounter Start Time: 12:00 Subjective: awake, not in distress -: not suicidal or homicidal, has no plans to commit suicide - Objective MAR Reviewed: Yes Vital Signs & Weight: Vital Signs (12 hours) Temp Pulse Resp BP Pulse Ox 07/21/17 12:14 98.4 F 90 18 109/61 93 L 07/21/17 08:10 57 L 07/21/17 08:00 98.1 F 56 L 18 90/53 L 91 L Weight Weight 204 lb 8 oz I&O: 07/20/17 07/21/17 07/22/17 06:59 06:59 06:59 Intake Total 1960 240 Balance 1960 240 Result Diagrams: 07/18/17 11:12 07/18/17 11:12 Additional Labs: Accuchecks 07/21/17 07/21/17 07/20/17 11:15 04:41 20:18 POC Glucose 145 H 116 H 134 H 07/20/17 07/20/17 16:00 11:29 POC Glucose 94 84 Phys Exam - Physical Examination HEENT: PERRLA, moist MMs Neck: no JVD, supple Respiratory: no wheezing, no rales Cardiovascular: RRR, no significant murmur Gastrointestinal: soft, non-tender, positive bowel sounds Musculoskeletal: no edema, pulses present Neurological: non-focal, moves all 4 limbs Dx/Plan (1) Suicidal intent Code(s): R45.851 - SUICIDAL IDEATIONS Status: Resolved (2) DM2 (diabetes mellitus, type 2) Status: Chronic Qualifiers: Diabetes mellitus complication status: with unspecified complications Diabetes mellitus watermaster insulin use: without watermaster use Qualified Code( s): E11.8 - Type 2 diabetes mellitus with unspecified complications Comment: diet controlled (3) Dyslipidemia Code(s): E78.5 - HYPERLIPIDEMIA, UNSPECIFIED Status: Chronic (4) HTN (hypertension) Code(s): I10 - ESSENTIAL (PRIMARY) HYPERTENSION Status: Chronic Qualifiers: Hypertension type: essential hypertension Qualified Code(s): I10 - Essential (primary) hypertension (5) Schizoaffective disorder Code(s): F25.9 - SCHIZOAFFECTIVE DISORDER, UNSPECIFIED Status: Suspected - Plan underlying psychiatric disorder is suboptimally treated -: will need structured environment/shelter/family to be more involved -: is currently awaiting [facility] bed, has no suicidal thoughts or plans now -: Not sure if pt is a reliable historian, hence will go per [facility] advice -: [facility] to re-evaluate pt today * . Review of Systems - Medications/Allergies Allergies/Adverse Reactions: Allergies Allergy/AdvReac Type Severity Reaction Status Date / Time alprazolam [From Xanax] Allergy Verified 07/14/17 00:07 haloperidol [From Haldol] Allergy Verified 07/14/17 00:07 zolpidem [From Ambien] Allergy Verified 07/14/17 02:35 Medications: Current Medications Benzonatate (Tessalon) 100 mg PO Q4H PRN PRN Reason: Cough Bisacodyl (Dulcolax) 10 mg PO DAILYPRN PRN PRN Reason: Constipation Last Admin: 07/20/17 12:55 Dose: 10 mg Clonazepam (Klonopin) 0.5 mg PO BID [facility] Last Admin: 07/21/17 08:11 Dose: 0.5 mg Clonidine (Catapres) 0.1 mg PO Q4H PRN PRN Reason: Systolic BP > 180 Dextrose/Water (Dextrose 50%) 25 gm SLOW IVP PRN PRN PRN Reason: Hypoglycemia Escitalopram Oxalate (Lexapro) 20 mg PO DAILY [facility] Last Admin: 07/21/17 08:11 Dose: 20 mg Glucagon (Glucagon) 1 mg IM PRN PRN PRN Reason: Hypoglycemia Guaifenesin (Robitussin Sf) 200 mg PO Q4H PRN PRN Reason: Cough Hydralazine HCl (Apresoline) 10 mg SLOW IVP Q4H PRN PRN Reason: Systolic BP > 180 Hydroxyzine Pamoate (Vistaril) 25 mg PO HS [facility] Last Admin: 07/20/17 20:53 Dose: 25 mg Dextrose/Water (D5w) 1,000 mls @ 0 mls/hr IV .Q0M PRN; As Directed PRN Reason: Hypoglycemia Insulin Human Regular (Humulin R) 0 units SC .MODERATE SLIDING SC PRN PRN Reason: Moderate Correctional Scale Insulin Human Regular (Humulin R) 0 units SC .BEDTIME SLIDING SC PRN PRN Reason: Bedtime Correctional Scale Lisinopril (Zestril) 10 mg PO DAILY [facility] Last Admin: 07/21/17 08:10 Dose: 10 mg Loratadine (Claritin) 10 mg PO DAILYPRN PRN PRN Reason: Sinus Symptoms Lorazepam (Ativan) 1 mg SLOW IVP Q2H PRN PRN Reason: Seizures Nitroglycerin (Nitrostat) 0.4 mg SL Q5MIN PRN PRN Reason: Chest Pain Ondansetron HCl (Zofran) 4 mg IVP Q6H PRN PRN Reason: Nausea/Vomiting Ondansetron HCl (Zofran Odt) 4 mg SL Q6H PRN PRN Reason: Nausea/Vomiting Last Admin: 07/20/17 06:23 Dose: 4 mg Valbenazine Tosylate ([Ingrezza] 40 Mg) 0 each PO DAILY [facility] Last Admin: 07/21/17 08:10 Dose: 1 each Senna (Senokot) 2 tab PO HSPRN PRN PRN Reason: Constipation Sodium Chloride (Flush - Normal Saline) 10 ml IVF Q12HR [facility] Last Admin: 07/21/17 08:16 Dose: Not Given Sodium Chloride (Flush - Normal Saline) 10 ml IVF PRN PRN PRN Reason: Saline Flush Tramadol HCl (Ultram) 50 mg PO Q4H PRN PRN Reason: Moderate Pain (4-6) Last Admin: 07/18/17 06:55 Dose: 50 mg
[2017-07-21] MEDS: hydrOXYzine Pamoate 25 mg Capsule PO SCH (20:25)
[2017-07-21] MEDS: Bisacodyl 5 MG TAB PO PRN (23:33)
[2017-07-22] MEDS: Insulin Regular 300 UNITS/3 ML VIAL SC PRN (05:40)
[2017-07-22] MEDS: Escitalopram Oxalate 20 mg Tablet PO SCH (07:55)
[2017-07-22] MEDS: clonazePAM 0.5 MG TAB PO SCH ×2 (07:55→21:09)
[2017-07-22] MEDS: Lisinopril 5 MG TAB PO SCH (07:55)
[2017-07-22] MEDS: Valbenazine Tosylate [Ingrezza] 40 MG PO SCH (08:08)
--- NOTE | 2017-07-22 15:09 | PDOC.PN ---
- Subjective Encounter Start Date: 07/22/17 Encounter Start Time: 12:30 Subjective: has hallucinations with multiple stories about losing kizzy otero, someone t -: -rying to theo her etc -: is ambulating in hallway, keeps writing a diary at bedside - Objective MAR Reviewed: Yes Vital Signs & Weight: Vital Signs (12 hours) Temp Pulse Resp BP BP Pulse Ox 07/22/17 08:00 98.7 F 84 20 134/70 95 07/22/17 04:58 96.5 F L 61 20 117/64 93 L Weight Weight 209 lb 4 oz I&O: 07/21/17 07/22/17 07/23/17 06:59 06:59 06:59 Intake Total 1959 1440 Balance 1959 1440 Result Diagrams: 07/18/17 11:12 07/18/17 11:12 Additional Labs: Accuchecks 07/22/17 07/22/17 07/21/17 11:26 04:57 17:07 POC Glucose 94 269 H 114 H Phys Exam - Physical Examination HEENT: PERRLA, moist MMs Neck: no JVD, supple Respiratory: no wheezing, no rales Cardiovascular: RRR, no significant murmur Gastrointestinal: soft, non-tender, positive bowel sounds Musculoskeletal: no edema, pulses present Neurological: non-focal, moves all 4 limbs Dx/Plan (1) Suicidal intent Code(s): R45.851 - SUICIDAL IDEATIONS Status: Resolved (2) DM2 (diabetes mellitus, type 2) Status: Chronic Qualifiers: Diabetes mellitus complication status: with unspecified complications Diabetes mellitus termite control servicer insulin use: without chcf use Qualified Code( s): E11.8 - Type 2 diabetes mellitus with unspecified complications Comment: diet controlled (3) Dyslipidemia Code(s): E78.5 - HYPERLIPIDEMIA, UNSPECIFIED Status: Chronic (4) HTN (hypertension) Code(s): I10 - ESSENTIAL (PRIMARY) HYPERTENSION Status: Chronic Qualifiers: Hypertension type: essential hypertension Qualified Code(s): I10 - Essential (primary) hypertension (5) Schizoaffective disorder Code(s): F25.9 - SCHIZOAFFECTIVE DISORDER, UNSPECIFIED Status: Suspected - Plan will add small dose risperdal and cogentin -: continue klonopin, her handwriting is good (writes a diary) -: is on ingrezza for tardive dyskinesia ? -: awaiting [facility] bed -: has schizoaffective disorder with hallucinations * . Review of Systems - Medications/Allergies Allergies/Adverse Reactions: Allergies Allergy/AdvReac Type Severity Reaction Status Date / Time alprazolam [From Xanax] Allergy Verified 07/14/17 00:07 haloperidol [From Haldol] Allergy Verified 07/14/17 00:07 zolpidem [From Ambien] Allergy Verified 07/14/17 02:35 Medications: Current Medications Benzonatate (Tessalon) 100 mg PO Q4H PRN PRN Reason: Cough Bisacodyl (Dulcolax) 10 mg PO DAILYPRN PRN PRN Reason: Constipation Last Admin: 07/21/17 23:33 Dose: 10 mg Clonazepam (Klonopin) 0.5 mg PO BID [facility] Last Admin: 07/22/17 07:55 Dose: 0.5 mg Clonidine (Catapres) 0.1 mg PO Q4H PRN PRN Reason: Systolic BP > 180 Dextrose/Water (Dextrose 50%) 25 gm SLOW IVP PRN PRN PRN Reason: Hypoglycemia Escitalopram Oxalate (Lexapro) 20 mg PO DAILY [facility] Last Admin: 07/22/17 07:55 Dose: 20 mg Glucagon (Glucagon) 1 mg IM PRN PRN PRN Reason: Hypoglycemia Guaifenesin (Robitussin Sf) 200 mg PO Q4H PRN PRN Reason: Cough Hydralazine HCl (Apresoline) 10 mg SLOW IVP Q4H PRN PRN Reason: Systolic BP > 180 Hydroxyzine Pamoate (Vistaril) 25 mg PO [facility] Last Admin: 07/21/17 20:25 Dose: 25 mg Dextrose/Water (D5w) 1,000 mls @ 0 mls/hr IV .Q0M PRN; As Directed PRN Reason: Hypoglycemia Insulin Human Regular (Humulin R) 0 units SC .MODERATE SLIDING SC PRN PRN Reason: Moderate Correctional Scale Last Admin: 07/22/17 05:40 Dose: 6 unit Insulin Human Regular (Humulin R) 0 units SC .BEDTIME SLIDING SC PRN PRN Reason: Bedtime Correctional Scale Lisinopril (Zestril) 10 mg PO DAILY [facility] Last Admin: 07/22/17 07:55 Dose: 10 mg Lorazepam (Ativan) 1 mg SLOW IVP Q2H PRN PRN Reason: Seizures Nitroglycerin (Nitrostat) 0.4 mg SL Q5MIN PRN PRN Reason: Chest Pain Ondansetron HCl (Zofran) 4 mg IVP Q6H PRN PRN Reason: Nausea/Vomiting Ondansetron HCl (Zofran Odt) 4 mg SL Q6H PRN PRN Reason: Nausea/Vomiting Last Admin: 07/20/17 06:23 Dose: 4 mg Valbenazine Tosylate ([Ingrezza] 40 Mg) 0 each PO DAILY [facility] Last Admin: 07/22/17 08:08 Dose: 1 each Risperidone (Risperidone) 0.5 mg PO BID [facility] Senna (Senokot) 2 tab PO HSPRN PRN PRN Reason: Constipation Sodium Chloride (Flush - Normal Saline) 10 ml IVF Q12HR [facility] Last Admin: 07/22/17 07:56 Dose: Not Given Sodium Chloride (Flush - Normal Saline) 10 ml IVF PRN PRN PRN Reason: Saline Flush Tramadol HCl (Ultram) 50 mg PO Q4H PRN PRN Reason: Moderate Pain (4-6) Last Admin: 07/18/17 06:55 Dose: 50 mg
[2017-07-22] MEDS: hydrOXYzine Pamoate 25 mg Capsule PO SCH (21:10)
[2017-07-22] MEDS: risperiDONE 0.25 MG TAB PO SCH (21:10)
[2017-07-22] MEDS: Bisacodyl 5 MG TAB PO PRN (21:17)
[2017-07-23 06:28] LABS: #Basophils 0.1 thou/uL (0.0-0.2); #Lymphocytes 2.3 thou/uL (1.20-3.40); #Monocytes 0.3 thou/uL (0.11-0.59); #Neutrophils 4.7 thou/uL (1.40-6.50); %Basophils 1.6 % (0.0-1.0); %Eosinophils 0.3 % (0.0-10.0); %Lymphocytes 30.7 % (21.0-51.0); %Monocytes 4.3 % (0.0-10.0); Hematocrit 44.9 % (36.0-47.0); Mean Platelet Volume 6.9 fL (7.4-10.4); Red Blood Cell (RBC) Count 4.88 mill/uL (4.20-5.40); White Blood Cell (WBC) Count 7.4 thou/uL (4.8-10.8)
[2017-07-23 06:41] LABS: Anion Gap 16 mmol/L (10-20); BUN (Urea Nitrogen) 8 mg/dL (9.8-20.1); Calc. Creatinine Clearance 119 mL/min (70-130); Carbon Dioxide 23 mmol/L (22-29); Chloride 99 mmol/L (98-107); Estimated GFR-MDRD 74
[2017-07-23] MEDS: Lisinopril 5 MG TAB PO SCH (08:04)
[2017-07-23] MEDS: risperiDONE 0.25 MG TAB PO SCH (08:04)
[2017-07-23] MEDS: clonazePAM 0.5 MG TAB PO SCH ×2 (08:04→21:04)
[2017-07-23] MEDS: Escitalopram Oxalate 20 mg Tablet PO SCH (08:04)
[2017-07-23] MEDS: Valbenazine Tosylate [Ingrezza] 40 MG PO SCH (08:05)
--- NOTE | 2017-07-23 14:29 | PDOC.PN ---
- Subjective Encounter Start Date: 07/23/17 Encounter Start Time: 12:00 Subjective: briefly became hypotensive with sbp into 90's -: no chest pain, sob or palp - Objective MAR Reviewed: Yes Vital Signs & Weight: Vital Signs (12 hours) Temp Pulse Resp BP Pulse Ox 07/23/17 08:04 56 L 07/23/17 08:00 97.4 F L 77 18 126/71 96 Weight Weight 209 lb 4 oz I&O: 07/22/17 07/23/17 07/24/17 06:59 06:59 06:59 Intake Total 1440 960 480 Balance 1440 960 480 Result Diagrams: 07/23/17 06:21 07/23/17 06:21 Additional Labs: Accuchecks 07/23/17 07/23/17 07/22/17 09:35 04:50 21:05 POC Glucose 236 H 146 H 113 H 07/22/17 17:07 POC Glucose 129 H Phys Exam - Physical Examination HEENT: PERRLA, moist MMs Neck: no JVD, supple Respiratory: no wheezing, no rales Cardiovascular: RRR, no significant murmur Gastrointestinal: soft, non-tender, positive bowel sounds Musculoskeletal: no edema, pulses present Neurological: non-focal, moves all 4 limbs Dx/Plan (1) Suicidal intent Code(s): R45.851 - SUICIDAL IDEATIONS Status: Resolved (2) DM2 (diabetes mellitus, type 2) Status: Chronic Qualifiers: Diabetes mellitus complication status: with unspecified complications Diabetes mellitus director long term care insulin use: without director long term care use Qualified Code( s): E11.8 - Type 2 diabetes mellitus with unspecified complications Comment: diet controlled (3) Dyslipidemia Code(s): E78.5 - HYPERLIPIDEMIA, UNSPECIFIED Status: Chronic (4) HTN (hypertension) Code(s): I10 - ESSENTIAL (PRIMARY) HYPERTENSION Status: Chronic Qualifiers: Hypertension type: essential hypertension Qualified Code(s): I10 - Essential (primary) hypertension (5) Schizoaffective disorder Code(s): F25.9 - SCHIZOAFFECTIVE DISORDER, UNSPECIFIED Status: Suspected Comment: with hallucinations - Plan will dc risperdal and cogentin -: dc hydroxyzine HS -: 1 liter ns in 4 hrs -: will need inpt psych hospitalization for control of her hallucinations -: await [facility] bed * . Review of Systems - Medications/Allergies Allergies/Adverse Reactions: Allergies Allergy/AdvReac Type Severity Reaction Status Date / Time alprazolam [From Xanax] Allergy Verified 07/14/17 00:07 haloperidol [From Haldol] Allergy Verified 07/14/17 00:07 zolpidem [From Ambien] Allergy Verified 07/14/17 02:35 Medications: Current Medications Benzonatate (Tessalon) 100 mg PO Q4H PRN PRN Reason: Cough Bisacodyl (Dulcolax) 10 mg PO DAILYPRN PRN PRN Reason: Constipation Last Admin: 07/22/17 21:17 Dose: 10 mg Clonazepam (Klonopin) 0.5 mg PO BID [facility] Last Admin: 07/23/17 08:04 Dose: 0.5 mg Clonidine (Catapres) 0.1 mg PO Q4H PRN PRN Reason: Systolic BP > 180 Dextrose/Water (Dextrose 50%) 25 gm SLOW IVP PRN PRN PRN Reason: Hypoglycemia Escitalopram Oxalate (Lexapro) 20 mg PO DAILY [facility] Last Admin: 07/23/17 08:04 Dose: 20 mg Glucagon (Glucagon) 1 mg IM PRN PRN PRN Reason: Hypoglycemia Guaifenesin (Robitussin Sf) 200 mg PO Q4H PRN PRN Reason: Cough Hydralazine HCl (Apresoline) 10 mg SLOW IVP Q4H PRN PRN Reason: Systolic BP > 180 Hydroxyzine Pamoate (Vistaril) 25 mg PO [facility] Last Admin: 07/22/17 21:10 Dose: 25 mg Dextrose/Water (D5w) 1,000 mls @ 0 mls/hr IV .Q0M PRN; As Directed PRN Reason: Hypoglycemia Insulin Human Regular (Humulin R) 0 units SC .MODERATE SLIDING SC PRN PRN Reason: Moderate Correctional Scale Last Admin: 07/22/17 05:40 Dose: 6 unit Insulin Human Regular (Humulin R) 0 units SC .BEDTIME SLIDING SC PRN PRN Reason: Bedtime Correctional Scale Lisinopril (Zestril) 10 mg PO DAILY [facility] Last Admin: 07/23/17 08:04 Dose: 10 mg Lorazepam (Ativan) 1 mg SLOW IVP Q2H PRN PRN Reason: Seizures Nitroglycerin (Nitrostat) 0.4 mg SL Q5MIN PRN PRN Reason: Chest Pain Ondansetron HCl (Zofran) 4 mg IVP Q6H PRN PRN Reason: Nausea/Vomiting Ondansetron HCl (Zofran Odt) 4 mg SL Q6H PRN PRN Reason: Nausea/Vomiting Last Admin: 07/20/17 06:23 Dose: 4 mg Valbenazine Tosylate ([Ingrezza] 40 Mg) 0 each PO DAILY [facility] Last Admin: 07/23/17 08:05 Dose: 1 each Senna (Senokot) 2 tab PO HSPRN PRN PRN Reason: Constipation Sodium Chloride (Flush - Normal Saline) 10 ml IVF Q12HR [facility] Last Admin: 07/23/17 08:05 Dose: 10 ml Sodium Chloride (Flush - Normal Saline) 10 ml IVF PRN PRN PRN Reason: Saline Flush Tramadol HCl (Ultram) 50 mg PO Q4H PRN PRN Reason: Moderate Pain (4-6) Last Admin: 07/18/17 06:55 Dose: 50 mg
[2017-07-23] MEDS: levETIRAcetam 500 MG TAB PO SCH (21:04)
[2017-07-23] MEDS ORDERED: Sodium Chloride 0.9% 500 ML IV SCH (21:15)
[2017-07-23] MEDS: Bisacodyl 5 MG TAB PO PRN (21:16)
--- NOTE | 2017-07-24 01:46 | PDOC.EVN ---
Event Note - Event Note Event Note: called for change in mental state questionable seizure like activity f/u ct head no eeg noted. will order eeg f/u with jeremiah in am
[2017-07-24] MEDS ORDERED: Lorazepam 2 MG/ML VIAL SLOW IVP PRN (02:09)
--- NOTE | 2017-07-24 08:27 | CT ---
EXAM: CT Head Without Intravenous Contrast CLINICAL HISTORY: 57 years old, female; Signs and symptoms; Altered mental status/memory loss and weakness, facial; Confusion or disorientation; Patient HX: Inpt. . . . Code green, AMS, possible seizure, right sided facial droop TECHNIQUE: Axial computed tomography images of the head/brain without intravenous contrast. COMPARISON: No relevant prior studies available. FINDINGS: Brain: Normal. Ventricles: Normal. Bones/joints: Normal. No acute fracture. Soft tissues: Normal. Sinuses: Normal. Mastoid air cells: Normal as visualized. No mastoid effusion. IMPRESSION: Normal head/brain CT. Thank you for allowing us to participate in the care of your patient. Dictated and Authenticated by: Alfredo Watson MD 07/24/2017 2:10 AM Central Time ([place] \T\ [place]) FINAL REPORT NONCONTRAST HEAD CT: Date: 07/24/17 HISTORY: Code Green. Altered mental status. COMPARISON: 07/13/17. TECHNIQUE: Noncontrast head CT is performed from skull base to skull vertex. FINDINGS: This report is in agreement with the preliminary report by Williams. No acute intracranial process. POS: [facility]
[2017-07-24] MEDS: clonazePAM 0.5 MG TAB PO SCH ×2 (09:46→20:48)
[2017-07-24] MEDS: Escitalopram Oxalate 20 mg Tablet PO SCH (09:46)
[2017-07-24] MEDS: Lisinopril 5 MG TAB PO SCH (09:46)
[2017-07-24] MEDS: levETIRAcetam 500 MG TAB PO SCH ×2 (09:46→20:47)
[2017-07-24] MEDS: Valbenazine Tosylate [Ingrezza] 40 MG PO SCH (11:03)
--- NOTE | 2017-07-24 15:52 | PDOC.PN ---
- Subjective Encounter Start Date: 07/24/17 Encounter Start Time: 13:10 -: old records requested/rev Pt seen and [place], chart reviewed in its entirety. This is my first viisit with this patient Pt awaiting bed at [facility]. Has a spell last ngiht of shaking but no post ictal phase. history of pseudoseizures. Neuro re-consulted. did fine today, but at 1pm was transferring form chair to bed and fell on her face on th ebed. BP then was 88/xx. 110 systolic a few moinutes later. Neuro contacted earlier, EEG ordered, but Dr Avelar reviewed prior and said not needed. Vitals have been stable. attempted orthostatics, but pt not compliant with request 10 point ROS performed, attempted, but unable to give coherent answers - Objective Resuscitation Status: FULL MAR Reviewed: Yes Vital Signs & Weight: Vital Signs (12 hours) Temp Pulse Resp BP BP BP BP 07/24/17 12:50 110/71 07/24/17 12:40 97.9 F 54 L 17 88/55 L 07/24/17 09:46 86 110/55 L 07/24/17 08:58 62 19 136/93 H Pulse Ox 07/24/17 12:50 07/24/17 12:40 97 07/24/17 09:46 07/24/17 08:58 99 Weight Admit Weight 200 lb 4.8 oz Weight 210 lb I&O: 07/23/17 07/24/17 07/25/17 06:59 06:59 06:59 Intake Total 960 720 Balance 960 720 Result Diagrams: 07/23/17 06:21 07/23/17 06:21 Additional Labs: Accuchecks 07/24/17 07/24/17 07/23/17 05:54 00:48 20:15 POC Glucose 118 H 118 H 119 H 07/23/17 07/23/17 16:15 11:38 POC Glucose 139 H 101 Radiology Reviewed by me: Yes EKG Reviewed by me: Yes Phys Exam - Physical Examination Constitutional: NAD HEENT: PERRLA, moist MMs, sclera anicteric, oral pharynx no lesions Neck: no nodes, no JVD, supple, full ROM Respiratory: no wheezing, no rales, no rhonchi, clear to auscultation bilateral Cardiovascular: RRR, no significant murmur, no rub Gastrointestinal: soft, non-tender, no distention, positive bowel sounds Musculoskeletal: no edema, pulses present Neurological: non-focal, normal sensation, moves all 4 limbs Lymphatic: no nodes Deviation from normal: awake, alert, conversant, flat affect Skin: no rash, normal turgor, cap refill <2 seconds Dx/Plan (1) Pseudoseizures Code(s): F44.5 - CONVERSION DISORDER WITH SEIZURES OR CONVULSIONS Status: Acute (2) Orthostasis Code(s): I95.1 - ORTHOSTATIC HYPOTENSION Status: Acute Comment: suspected. attempt orthostatics when pt agreeable (3) DM2 (diabetes mellitus, type 2) Status: Chronic Qualifiers: Diabetes mellitus complication status: without complication Diabetes mellitus fdc insulin use: without termite exterminator use Qualified Code(s): E11.9 - Type 2 diabetes mellitus without complications Comment: diet controlled (4) Dyslipidemia Code(s): E78.5 - HYPERLIPIDEMIA, UNSPECIFIED Status: Chronic (5) HTN (hypertension) Code(s): I10 - ESSENTIAL (PRIMARY) HYPERTENSION Status: Chronic Qualifiers: Hypertension type: essential hypertension Qualified Code(s): I10 - Essential (primary) hypertension (6) Spinal stenosis Code(s): M48.00 - SPINAL STENOSIS, SITE UNSPECIFIED Status: Chronic Qualifiers: Spinal region: lumbar Neurogenic claudication status: without neurogenic claudication Qualified Code(s): M48.061 - Spinal stenosis, lumbar region without neurogenic claudication (7) Schizoaffective disorder Code(s): F25.9 - SCHIZOAFFECTIVE DISORDER, UNSPECIFIED Status: Suspected Qualifiers: Schizoaffective disorder type: unspecified Qualified Code(s): F25.9 - Schizoaffective disorder, unspecified Comment: with hallucinations - Plan cont current plan of care, PT/OT, social work supervisor to [facility] when bed available. * .
[2017-07-25] MEDS: Bisacodyl 5 MG TAB PO PRN (06:22)
[2017-07-25] MEDS: clonazePAM 0.5 MG TAB PO SCH ×2 (08:49→20:59)
[2017-07-25] MEDS: Escitalopram Oxalate 20 mg Tablet PO SCH (08:49)
[2017-07-25] MEDS: Lisinopril 5 MG TAB PO SCH (08:49)
[2017-07-25] MEDS: levETIRAcetam 500 MG TAB PO SCH ×2 (08:49→21:00)
[2017-07-25] MEDS: Valbenazine Tosylate [Ingrezza] 40 MG PO SCH (08:50)
--- NOTE | 2017-07-25 16:58 | PDOC.PN ---
- Subjective Encounter Start Date: 07/25/17 Encounter Start Time: 11:00 No acute events overnight. another episode of presyncope and hypotension ealrier today, orthostatics were negative. NO F/C, no N/V/D/C, no CP, no SOB. 10 point ROS performed and neg fro all systems except as per hPI - Objective Resuscitation Status: FULL MAR Reviewed: Yes Vital Signs & Weight: Vital Signs (12 hours) Temp Pulse Resp BP BP BP BP 07/25/17 15:54 98.8 F 74 18 130/81 07/25/17 14:08 98.2 F 66 18 07/25/17 11:02 98.2 F 50 L 18 118/62 07/25/17 10:45 98.2 F 54 L 17 119/61 07/25/17 08:40 98.4 F 57 L 18 171/75 H 167/85 H 133/74 Pulse Ox 07/25/17 15:54 95 07/25/17 14:08 94 L 07/25/17 11:02 97 07/25/17 10:45 94 L 07/25/17 08:40 96 Weight Admit Weight 200 lb 4.8 oz Weight 210 lb I&O: 07/24/17 07/25/17 07/26/17 06:59 06:59 06:59 Intake Total 720 1800 Output Total 4 Balance 720 1796 Result Diagrams: 07/23/17 06:21 07/23/17 06:21 Additional Labs: Accuchecks 07/25/17 07/25/17 07/25/17 15:54 11:23 10:38 POC Glucose 132 H 96 104 07/25/17 07/24/17 07/24/17 05:52 20:36 16:53 POC Glucose 144 H 130 H 96 07/24/17 12:51 POC Glucose 131 H Radiology Reviewed by me: Yes EKG Reviewed by me: Yes Phys Exam - Physical Examination Constitutional: NAD HEENT: PERRLA, moist MMs, sclera anicteric, oral pharynx no lesions Neck: no nodes, no JVD, supple, full ROM Respiratory: no wheezing, no rales, no rhonchi Cardiovascular: RRR, no significant murmur, no rub Gastrointestinal: soft, non-tender, no distention, positive bowel sounds Musculoskeletal: no edema, pulses present Neurological: non-focal, normal sensation, moves all 4 limbs Lymphatic: no nodes Psychiatric: A&O x 3 Skin: no rash, normal turgor, cap refill <2 seconds Dx/Plan (1) Pseudoseizures Code(s): F44.5 - CONVERSION DISORDER WITH SEIZURES OR CONVULSIONS Status: Acute Comment: nor more shaking spells. (2) Orthostasis Code(s): I95.1 - ORTHOSTATIC HYPOTENSION Status: Acute Comment: suspected. low BP earlier, but tilt negative. hold lisinopril (3) DM2 (diabetes mellitus, type 2) Status: Chronic Qualifiers: Diabetes mellitus complication status: without complication Diabetes mellitus long-term insulin use: without ferry terminal supervisor use Qualified Code(s): E11.9 - Type 2 diabetes mellitus without complications Comment: diet controlled (4) Dyslipidemia Code(s): E78.5 - HYPERLIPIDEMIA, UNSPECIFIED Status: Chronic (5) HTN (hypertension) Code(s): I10 - ESSENTIAL (PRIMARY) HYPERTENSION Status: Chronic Qualifiers: Hypertension type: essential hypertension Qualified Code(s): I10 - Essential (primary) hypertension Comment: hold lisinopril in seting of daily drop in BP around lunch time (6) Spinal stenosis Code(s): M48.00 - SPINAL STENOSIS, SITE UNSPECIFIED Status: Chronic Qualifiers: Spinal region: lumbar Neurogenic claudication status: without neurogenic claudication Qualified Code(s): M48.061 - Spinal stenosis, lumbar region without neurogenic claudication (7) Schizoaffective disorder Code(s): F25.9 - SCHIZOAFFECTIVE DISORDER, UNSPECIFIED Status: Suspected Qualifiers: Schizoaffective disorder type: unspecified Qualified Code(s): F25.9 - Schizoaffective disorder, unspecified Comment: with hallucinations - Plan cont current plan of care * . await [facility] bed. transfer to medical floor
[2017-07-25] MEDS: Acetaminophen 500 MG TAB PO PRN (18:36)
[2017-07-26] MEDS: Insulin Regular 300 UNITS/3 ML VIAL SC PRN (06:11)
[2017-07-26] MEDS: clonazePAM 0.5 MG TAB PO SCH ×2 (10:10→21:45)
[2017-07-26] MEDS: Escitalopram Oxalate 20 mg Tablet PO SCH (10:10)
[2017-07-26] MEDS: levETIRAcetam 500 MG TAB PO SCH ×2 (10:10→21:44)
[2017-07-26] MEDS: Acetaminophen 500 MG TAB PO PRN (10:11)
--- NOTE | 2017-07-26 11:34 | PDOC.PN ---
- Subjective Encounter Start Date: 07/26/17 Encounter Start Time: 10:20 -: old records requested/rev Patient seen and examined. No new complaints. No overnight events - Objective MAR Reviewed: Yes Vital Signs & Weight: Vital Signs (12 hours) Temp Pulse Resp BP Pulse Ox 07/26/17 07:46 98.5 F 73 20 130/89 94 L 07/26/17 04:00 98.1 F 65 18 138/88 98 07/26/17 00:00 98.5 F 64 18 103/66 98 Weight Admit Weight 200 lb 4.8 oz Weight 218 lb 8 oz I&O: 07/25/17 07/26/17 07/27/17 06:59 06:59 06:59 Intake Total 1800 1110 Output Total 4 Balance 1796 1110 Result Diagrams: 07/23/17 06:21 07/23/17 06:21 Additional Labs: Accuchecks 07/26/17 07/25/17 07/25/17 05:27 19:20 15:54 POC Glucose 212 H 133 H 132 H 07/25/17 11:23 POC Glucose 96 Phys Exam - Physical Examination Constitutional: NAD HEENT: PERRLA, moist MMs, sclera anicteric Neck: no JVD, supple Respiratory: no wheezing, no rales, no rhonchi Cardiovascular: RRR, no significant murmur, no rub Gastrointestinal: soft, non-tender, no distention, positive bowel sounds Musculoskeletal: no edema, pulses present Neurological: non-focal, normal sensation, moves all 4 limbs Lymphatic: no nodes Psychiatric: normal affect, A&O x 3 Skin: no rash, normal turgor Dx/Plan (1) Orthostasis Code(s): I95.1 - ORTHOSTATIC HYPOTENSION Status: Acute Comment: (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 - CONVERSION DISORDER WITH SEIZURES OR CONVULSIONS Status: Acute Comment: (3) DM2 (diabetes mellitus, type 2) Status: Chronic Qualifiers: Diabetes mellitus complication status: without complication Diabetes mellitus retirement insulin use: without retirement use Qualified Code(s): E11.9 - Type 2 diabetes mellitus without complications Comment: diet controlled (4) Dyslipidemia Code(s): E78.5 - HYPERLIPIDEMIA, UNSPECIFIED Status: Chronic (5) HTN (hypertension) Code(s): I10 - ESSENTIAL (PRIMARY) HYPERTENSION Status: Chronic Qualifiers: Hypertension type: essential hypertension Qualified Code(s): I10 - Essential (primary) hypertension Comment: (6) Spinal stenosis Code(s): M48.00 - SPINAL STENOSIS, SITE UNSPECIFIED Status: Chronic Qualifiers: Spinal region: lumbar Neurogenic claudication status: without neurogenic claudication Qualified Code(s): M48.061 - Spinal stenosis, lumbar region without neurogenic claudication (7) Schizoaffective disorder Code(s): F25.9 - SCHIZOAFFECTIVE DISORDER, UNSPECIFIED Status: Suspected Qualifiers: Schizoaffective disorder type: unspecified Qualified Code(s): F25.9 - Schizoaffective disorder, unspecified Comment: with hallucinations (8) Seizure Code(s): R56.9 - UNSPECIFIED CONVULSIONS Status: Resolved (9) Suicidal intent Code(s): R45.851 - SUICIDAL IDEATIONS Status: Resolved - Plan cont current plan of care, social media specialist * medication reviewed as below * symptomatic treatment * medically stable with current treatment * await placement to [facility]. Review of Systems - Review of Systems ENT: negative: Ear Pain, Ear Discharge, Nose Pain, Nose Discharge, Nose Congestion, Mouth Pain, Mouth Swelling, Throat Pain, Throat Swelling, Other Respiratory: negative: Cough, Dry, Shortness of Breath, Hemoptysis, SOB with Excertion, Pleuritic Pain, Sputum, Wheezing Cardiovascular: negative: Chest Pain, Palpitations, Orthopnea, Paroxysmal Noc. Dyspnea, Edema, Light Headedness, Other Gastrointestinal: negative: Nausea, Vomiting, Abdominal Pain, Diarrhea, Constipation, Melena, Hematochezia, Other Genitourinary: negative: Dysuria, Frequency, Incontinence, Hematuria, Retention , Other Musculoskeletal: negative: Neck Pain, Shoulder Pain, Arm Pain, Back Pain, Hand Pain, Leg Pain, Foot Pain, Other - Medications/Allergies Allergies/Adverse Reactions: Allergies Allergy/AdvReac Type Severity Reaction Status Date / Time alprazolam [From Xanax] Allergy Verified 07/14/17 00:07 haloperidol [From Haldol] Allergy Verified 07/14/17 00:07 zolpidem [From Ambien] Allergy Verified 07/14/17 02:35 Medications: Current Medications Acetaminophen (Tylenol) 1,000 mg PO Q6H PRN PRN Reason: Headache Last Admin: 07/26/17 10:11 Dose: 1,000 mg Benzonatate (Tessalon) 100 mg PO Q4H PRN PRN Reason: Cough Clonazepam (Klonopin) 0.5 mg PO BID [facility] Last Admin: 07/26/17 10:10 Dose: 0.5 mg Clonidine (Catapres) 0.1 mg PO Q4H PRN PRN Reason: Systolic BP > 180 Dextrose/Water (Dextrose 50%) 25 gm SLOW IVP PRN PRN PRN Reason: Hypoglycemia Escitalopram Oxalate (Lexapro) 20 mg PO DAILY [facility] Last Admin: 07/26/17 10:10 Dose: 20 mg Glucagon (Glucagon) 1 mg IM PRN PRN PRN Reason: Hypoglycemia Guaifenesin (Robitussin Sf) 200 mg PO Q4H PRN PRN Reason: Cough Hydralazine HCl (Apresoline) 10 mg SLOW IVP Q4H PRN PRN Reason: Systolic BP > 180 Dextrose/Water (D5w) 1,000 mls @ 0 mls/hr IV .Q0M PRN; As Directed PRN Reason: Hypoglycemia Insulin Human Regular (Humulin R) 0 units SC .MODERATE SLIDING SC PRN PRN Reason: Moderate Correctional Scale Last Admin: 07/26/17 06:11 Dose: 4 unit Insulin Human Regular (Humulin R) 0 units SC .BEDTIME SLIDING SC PRN PRN Reason: Bedtime Correctional Scale Levetiracetam (Keppra) 500 mg PO BID [facility] Last Admin: 07/26/17 10:10 Dose: 500 mg Lorazepam (Ativan) 2 mg SLOW IVP Q15M PRN PRN Reason: SEIZURE ACTIVITY Nitroglycerin (Nitrostat) 0.4 mg SL Q5MIN PRN PRN Reason: Chest Pain Ondansetron HCl (Zofran) 4 mg IVP Q6H PRN PRN Reason: Nausea/Vomiting Ondansetron HCl (Zofran Odt) 4 mg SL Q6H PRN PRN Reason: Nausea/Vomiting Last Admin: 07/20/17 06:23 Dose: 4 mg Valbenazine Tosylate ([Ingrezza] 40 Mg) 0 each PO DAILY [facility] Last Admin: 07/25/17 08:50 Dose: 80 each Senna (Senokot) 2 tab PO HSPRN PRN PRN Reason: Constipation Sodium Chloride (Flush - Normal Saline) 10 ml IVF Q12HR [facility] Last Admin: 07/26/17 10:11 Dose: 10 ml Sodium Chloride (Flush - Normal Saline) 10 ml IVF PRN PRN PRN Reason: Saline Flush
[2017-07-26] MEDS: Valbenazine Tosylate [Ingrezza] 40 MG PO SCH (15:12)
[2017-07-27] MEDS: Escitalopram Oxalate 20 mg Tablet PO SCH (08:58)
[2017-07-27] MEDS: levETIRAcetam 500 MG TAB PO SCH ×2 (08:58→20:28)
[2017-07-27] MEDS: clonazePAM 0.5 MG TAB PO SCH ×2 (08:58→20:28)
[2017-07-27] MEDS: Valbenazine Tosylate [Ingrezza] 40 MG PO SCH (08:58)
[2017-07-27] MEDS ORDERED: ALPRAZolam 0.25 MG TAB PO PRN ×2 (12:18→22:55)
--- NOTE | 2017-07-27 12:37 | PDOC.PN ---
- Subjective Encounter Start Date: 07/27/17 Encounter Start Time: 08:10 Patient seen and examined. she is crying, she still has suicidal ideation No new complaints. No overnight events - Objective MAR Reviewed: Yes Vital Signs & Weight: Vital Signs (12 hours) Temp Pulse Resp BP BP BP Pulse Ox 07/27/17 12:00 98.4 F 54 L 20 147/90 H 143/105 H 123/77 95 07/27/17 09:32 98.5 F 78 18 174/85 H 98 07/27/17 08:00 97.9 F 76 20 148/104 H 157/104 H 123/71 94 L 07/27/17 04:00 97.9 F 68 18 136/73 Weight Admit Weight 200 lb 4.8 oz Weight 218 lb 8 oz I&O: 07/26/17 07/27/17 07/28/17 06:59 06:59 06:59 Intake Total 1110 2250 Balance 1110 2250 Result Diagrams: 07/23/17 06:21 07/23/17 06:21 Additional Labs: Accuchecks 07/27/17 07/27/17 07/26/17 12:02 05:21 19:36 POC Glucose 97 134 H 132 H 07/26/17 15:46 POC Glucose 132 H Phys Exam - Physical Examination Constitutional: NAD HEENT: PERRLA, moist MMs, sclera anicteric Neck: no JVD, supple Respiratory: no wheezing, no rales, no rhonchi Cardiovascular: RRR, no significant murmur, no rub Gastrointestinal: soft, non-tender, no distention, positive bowel sounds Musculoskeletal: no edema, pulses present Neurological: non-focal, normal sensation, moves all 4 limbs Psychiatric: A&O x 3 Deviation from normal: depressed Skin: no rash, normal turgor Dx/Plan (1) Orthostasis Code(s): I95.1 - ORTHOSTATIC HYPOTENSION Status: Acute Comment: (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 - CONVERSION DISORDER WITH SEIZURES OR CONVULSIONS Status: Acute Comment: (3) DM2 (diabetes mellitus, type 2) Status: Chronic Qualifiers: Diabetes mellitus complication status: without complication Diabetes mellitus detention insulin use: without terminal operator use Qualified Code(s): E11.9 - Type 2 diabetes mellitus without complications Comment: diet controlled (4) Dyslipidemia Code(s): E78.5 - HYPERLIPIDEMIA, UNSPECIFIED Status: Chronic (5) HTN (hypertension) Code(s): I10 - ESSENTIAL (PRIMARY) HYPERTENSION Status: Chronic Qualifiers: Hypertension type: essential hypertension Qualified Code(s): I10 - Essential (primary) hypertension Comment: (6) Spinal stenosis Code(s): M48.00 - SPINAL STENOSIS, SITE UNSPECIFIED Status: Chronic Qualifiers: Spinal region: lumbar Neurogenic claudication status: without neurogenic claudication Qualified Code(s): M48.061 - Spinal stenosis, lumbar region without neurogenic claudication (7) Schizoaffective disorder Code(s): F25.9 - SCHIZOAFFECTIVE DISORDER, UNSPECIFIED Status: Suspected Qualifiers: Schizoaffective disorder type: unspecified Qualified Code(s): F25.9 - Schizoaffective disorder, unspecified Comment: with hallucinations (8) Seizure Code(s): R56.9 - UNSPECIFIED CONVULSIONS Status: Resolved (9) Suicidal intent Code(s): R45.851 - SUICIDAL IDEATIONS Status: Resolved - Plan cont current plan of care, social media campaign manager * add xanax as needed for anxiety * await shabbir bed * medication reviewed as below * symptomatic treatment. Review of Systems - Review of Systems ENT: negative: Ear Pain, Ear Discharge, Nose Pain, Nose Discharge, Nose Congestion, Mouth Pain, Mouth Swelling, Throat Pain, Throat Swelling, Other Respiratory: negative: Cough, Dry, Shortness of Breath, Hemoptysis, SOB with Excertion, Pleuritic Pain, Sputum, Wheezing Cardiovascular: negative: Chest Pain, Palpitations, Orthopnea, Paroxysmal Noc. Dyspnea, Edema, Light Headedness, Other Gastrointestinal: negative: Nausea, Vomiting, Abdominal Pain, Diarrhea, Constipation, Melena, Hematochezia, Other Genitourinary: negative: Dysuria, Frequency, Incontinence, Hematuria, Retention , Other Musculoskeletal: negative: Neck Pain, Shoulder Pain, Arm Pain, Back Pain, Hand Pain, Leg Pain, Foot Pain, Other - Medications/Allergies Allergies/Adverse Reactions: Allergies Allergy/AdvReac Type Severity Reaction Status Date / Time alprazolam [From Xanax] Allergy Verified 07/14/17 00:07 haloperidol [From Haldol] Allergy Verified 07/14/17 00:07 zolpidem [From Ambien] Allergy Verified 07/14/17 02:35 Medications: Current Medications Acetaminophen (Tylenol) 1,000 mg PO Q6H PRN PRN Reason: Headache Last Admin: 07/26/17 10:11 Dose: 1,000 mg Alprazolam (Xanax) 0.25 mg PO Q6H PRN PRN Reason: Anxiety Benzonatate (Tessalon) 100 mg PO Q4H PRN PRN Reason: Cough Clonazepam (Klonopin) 0.5 mg PO BID [facility] Last Admin: 07/27/17 08:58 Dose: 0.5 mg Clonidine (Catapres) 0.1 mg PO Q4H PRN PRN Reason: Systolic BP > 180 Dextrose/Water (Dextrose 50%) 25 gm SLOW IVP PRN PRN PRN Reason: Hypoglycemia Escitalopram Oxalate (Lexapro) 20 mg PO DAILY [facility] Last Admin: 07/27/17 08:58 Dose: 20 mg Glucagon (Glucagon) 1 mg IM PRN PRN PRN Reason: Hypoglycemia Guaifenesin (Robitussin Sf) 200 mg PO Q4H PRN PRN Reason: Cough Hydralazine HCl (Apresoline) 10 mg SLOW IVP Q4H PRN PRN Reason: Systolic BP > 180 Dextrose/Water (D5w) 1,000 mls @ 0 mls/hr IV .Q0M PRN; As Directed PRN Reason: Hypoglycemia Insulin Human Regular (Humulin R) 0 units SC .MODERATE SLIDING SC PRN PRN Reason: Moderate Correctional Scale Last Admin: 07/26/17 06:11 Dose: 4 unit Insulin Human Regular (Humulin R) 0 units SC .BEDTIME SLIDING SC PRN PRN Reason: Bedtime Correctional Scale Levetiracetam (Keppra) 500 mg PO BID [facility] Last Admin: 07/27/17 08:58 Dose: 500 mg Lorazepam (Ativan) 2 mg SLOW IVP Q15M PRN PRN Reason: SEIZURE ACTIVITY Last Admin: 07/27/17 12:35 Dose: 2 mg Nitroglycerin (Nitrostat) 0.4 mg SL Q5MIN PRN PRN Reason: Chest Pain Ondansetron HCl (Zofran) 4 mg IVP Q6H PRN PRN Reason: Nausea/Vomiting Ondansetron HCl (Zofran Odt) 4 mg SL Q6H PRN PRN Reason: Nausea/Vomiting Last Admin: 07/20/17 06:23 Dose: 4 mg Valbenazine Tosylate ([Ingrezza] 40 Mg) 0 each PO DAILY [facility] Last Admin: 07/27/17 08:58 Dose: Not Given Senna (Senokot) 2 tab PO HSPRN PRN PRN Reason: Constipation Sodium Chloride (Flush - Normal Saline) 10 ml IVF Q12HR [facility] Last Admin: 07/27/17 08:59 Dose: 10 ml Sodium Chloride (Flush - Normal Saline) 10 ml IVF PRN PRN PRN Reason: Saline Flush
[2017-07-28] MEDS: Valbenazine Tosylate [Ingrezza] 40 MG PO SCH (08:01)
[2017-07-28] MEDS: clonazePAM 0.5 MG TAB PO SCH ×2 (08:17→23:16)
[2017-07-28] MEDS: levETIRAcetam 500 MG TAB PO SCH (08:18)
[2017-07-28] MEDS: Escitalopram Oxalate 20 mg Tablet PO SCH (08:18)
--- NOTE | 2017-07-28 13:30 | PDOC.PN ---
- Subjective Encounter Start Date: 07/28/17 Encounter Start Time: 08:00 Patient seen and examined. No new complaints. No overnight events - Objective MAR Reviewed: Yes Vital Signs & Weight: Vital Signs (12 hours) Temp Pulse Resp BP Pulse Ox 07/28/17 08:06 98.6 F 71 16 156/87 H 93 L 07/28/17 08:00 98.6 F 71 16 07/28/17 04:00 97.5 F L 58 L 18 136/69 97 Weight Admit Weight 200 lb 4.8 oz Weight 216 lb I&O: 07/27/17 07/28/17 07/29/17 06:59 06:59 06:59 Intake Total 2250 3060 Balance 2250 3060 Result Diagrams: 07/23/17 06:21 07/23/17 06:21 Additional Labs: Accuchecks 07/28/17 07/27/17 07/27/17 05:32 20:27 15:58 POC Glucose 123 H 129 H 107 Phys Exam - Physical Examination Constitutional: NAD HEENT: PERRLA, moist MMs, sclera anicteric Neck: no JVD, supple Respiratory: no wheezing, no rales, no rhonchi Cardiovascular: RRR, no significant murmur, no rub Gastrointestinal: soft, non-tender, no distention, positive bowel sounds Musculoskeletal: no edema, pulses present Neurological: non-focal, normal sensation, moves all 4 limbs Lymphatic: no nodes Psychiatric: normal affect, A&O x 3 Skin: no rash, normal turgor Dx/Plan (1) Orthostasis Code(s): I95.1 - ORTHOSTATIC HYPOTENSION Status: Acute Comment: (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 - CONVERSION DISORDER WITH SEIZURES OR CONVULSIONS Status: Acute Comment: (3) DM2 (diabetes mellitus, type 2) Status: Chronic Qualifiers: Diabetes mellitus complication status: without complication Diabetes mellitus mcc insulin use: without mcc use Qualified Code(s): E11.9 - Type 2 diabetes mellitus without complications Comment: diet controlled (4) Dyslipidemia Code(s): E78.5 - HYPERLIPIDEMIA, UNSPECIFIED Status: Chronic (5) HTN (hypertension) Code(s): I10 - ESSENTIAL (PRIMARY) HYPERTENSION Status: Chronic Qualifiers: Hypertension type: essential hypertension Qualified Code(s): I10 - Essential (primary) hypertension Comment: (6) Spinal stenosis Code(s): M48.00 - SPINAL STENOSIS, SITE UNSPECIFIED Status: Chronic Qualifiers: Spinal region: lumbar Neurogenic claudication status: without neurogenic claudication Qualified Code(s): M48.061 - Spinal stenosis, lumbar region without neurogenic claudication (7) Schizoaffective disorder Code(s): F25.9 - SCHIZOAFFECTIVE DISORDER, UNSPECIFIED Status: Suspected Qualifiers: Schizoaffective disorder type: unspecified Qualified Code(s): F25.9 - Schizoaffective disorder, unspecified Comment: with hallucinations (8) Seizure Code(s): R56.9 - UNSPECIFIED CONVULSIONS Status: Resolved (9) Suicidal intent Code(s): R45.851 - SUICIDAL IDEATIONS Status: Resolved - Plan cont current plan of care, social science analyst * medication reviewed as below * symptomatic treatment * await shabbir bed. Review of Systems - Review of Systems ENT: negative: Ear Pain, Ear Discharge, Nose Pain, Nose Discharge, Nose Congestion, Mouth Pain, Mouth Swelling, Throat Pain, Throat Swelling, Other Respiratory: negative: Cough, Dry, Shortness of Breath, Hemoptysis, SOB with Excertion, Pleuritic Pain, Sputum, Wheezing Cardiovascular: negative: Chest Pain, Palpitations, Orthopnea, Paroxysmal Noc. Dyspnea, Edema, Light Headedness, Other Gastrointestinal: negative: Nausea, Vomiting, Abdominal Pain, Diarrhea, Constipation, Melena, Hematochezia, Other Genitourinary: negative: Dysuria, Frequency, Incontinence, Hematuria, Retention , Other Musculoskeletal: negative: Neck Pain, Shoulder Pain, Arm Pain, Back Pain, Hand Pain, Leg Pain, Foot Pain, Other - Medications/Allergies Allergies/Adverse Reactions: Allergies Allergy/AdvReac Type Severity Reaction Status Date / Time alprazolam [From Xanax] Allergy Verified 07/14/17 00:07 haloperidol [From Haldol] Allergy Verified 07/14/17 00:07 zolpidem [From Ambien] Allergy Verified 07/14/17 02:35 Medications: Current Medications Acetaminophen (Tylenol) 1,000 mg PO Q6H PRN PRN Reason: Headache Last Admin: 07/26/17 10:11 Dose: 1,000 mg Benzonatate (Tessalon) 100 mg PO Q4H PRN PRN Reason: Cough Clonazepam (Klonopin) 0.5 mg PO BID [facility] Last Admin: 07/28/17 08:17 Dose: 0.5 mg Clonidine (Catapres) 0.1 mg PO Q4H PRN PRN Reason: Systolic BP > 180 Dextrose/Water (Dextrose 50%) 25 gm SLOW IVP PRN PRN PRN Reason: Hypoglycemia Escitalopram Oxalate (Lexapro) 20 mg PO DAILY [facility] Last Admin: 07/28/17 08:18 Dose: 20 mg Glucagon (Glucagon) 1 mg IM PRN PRN PRN Reason: Hypoglycemia Guaifenesin (Robitussin Sf) 200 mg PO Q4H PRN PRN Reason: Cough Hydralazine HCl (Apresoline) 10 mg SLOW IVP Q4H PRN PRN Reason: Systolic BP > 180 Dextrose/Water (D5w) 1,000 mls @ 0 mls/hr IV .Q0M PRN; As Directed PRN Reason: Hypoglycemia Insulin Human Regular (Humulin R) 0 units SC .MODERATE SLIDING SC PRN PRN Reason: Moderate Correctional Scale Last Admin: 07/26/17 06:11 Dose: 4 unit Insulin Human Regular (Humulin R) 0 units SC .BEDTIME SLIDING SC PRN PRN Reason: Bedtime Correctional Scale Levetiracetam (Keppra) 500 mg PO BID [facility] Last Admin: 07/28/17 08:18 Dose: 500 mg Lorazepam (Ativan) 2 mg SLOW IVP Q15M PRN PRN Reason: SEIZURE ACTIVITY Last Admin: 07/27/17 12:35 Dose: 2 mg Lorazepam (Ativan) 1 mg PO Q6H PRN PRN Reason: Anxiety Nitroglycerin (Nitrostat) 0.4 mg SL Q5MIN PRN PRN Reason: Chest Pain Ondansetron HCl (Zofran) 4 mg IVP Q6H PRN PRN Reason: Nausea/Vomiting Ondansetron HCl (Zofran Odt) 4 mg SL Q6H PRN PRN Reason: Nausea/Vomiting Last Admin: 07/20/17 06:23 Dose: 4 mg Valbenazine Tosylate ([Ingrezza] 40 Mg) 0 each PO DAILY [facility] Last Admin: 07/28/17 08:01 Dose: Not Given Senna (Senokot) 2 tab PO HSPRN PRN PRN Reason: Constipation Sodium Chloride (Flush - Normal Saline) 10 ml IVF Q12HR [facility] Last Admin: 07/28/17 08:20 Dose: 10 ml Sodium Chloride (Flush - Normal Saline) 10 ml IVF PRN PRN PRN Reason: Saline Flush
[2017-07-28] MEDS: Lorazepam 1 MG TAB PO PRN (16:06)
[2017-07-28] MEDS ORDERED: Divalproex Sodium DR 500 MG TAB PO SCH ×2 (21:00)
[2017-07-28] MEDS: Divalproex Sodium DR 500 MG TAB PO SCH (23:16)
[2017-07-29] MEDS: Divalproex Sodium DR 500 MG TAB PO SCH ×2 (09:13→21:17)
[2017-07-29] MEDS: clonazePAM 0.5 MG TAB PO SCH ×2 (09:14→21:17)
[2017-07-29] MEDS: Escitalopram Oxalate 20 mg Tablet PO SCH (09:14)
[2017-07-29] MEDS: Valbenazine Tosylate [Ingrezza] 40 MG PO SCH (09:14)
[2017-07-29] MEDS: Acetaminophen 500 MG TAB PO PRN ×2 (12:45→21:22)
--- NOTE | 2017-07-29 13:22 | PDOC.PN ---
- Subjective Encounter Start Date: 07/29/17 Encounter Start Time: 10:00 Patient seen and examined. No new complaints. No overnight events - Objective MAR Reviewed: Yes Vital Signs & Weight: Vital Signs (12 hours) Temp Pulse Resp BP Pulse Ox 07/29/17 08:00 98.6 F 83 16 143/89 H 99 Weight Admit Weight 200 lb 4.8 oz Weight 216 lb I&O: 07/28/17 07/29/17 07/30/17 06:59 06:59 06:59 Intake Total 3060 1300 240 Balance 3060 1300 240 Result Diagrams: 07/23/17 06:21 07/23/17 06:21 Additional Labs: Accuchecks 07/29/17 07/29/17 07/28/17 12:20 04:20 19:33 POC Glucose 92 115 H 137 H 07/28/17 07/28/17 15:36 11:24 POC Glucose 109 122 H Phys Exam - Physical Examination Constitutional: NAD HEENT: PERRLA, moist MMs, sclera anicteric Neck: no JVD, supple Respiratory: no wheezing, no rales, no rhonchi Cardiovascular: RRR, no significant murmur, no rub Gastrointestinal: soft, non-tender, no distention, positive bowel sounds Musculoskeletal: no edema, pulses present Neurological: non-focal, normal sensation Lymphatic: no nodes Psychiatric: normal affect, A&O x 3 Skin: no rash, normal turgor Dx/Plan (1) Orthostasis Code(s): I95.1 - ORTHOSTATIC HYPOTENSION Status: Acute Comment: (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 - CONVERSION DISORDER WITH SEIZURES OR CONVULSIONS Status: Acute Comment: (3) DM2 (diabetes mellitus, type 2) Status: Chronic Qualifiers: Diabetes mellitus complication status: without complication Diabetes mellitus residential insulin use: without residential use Qualified Code(s): E11.9 - Type 2 diabetes mellitus without complications Comment: diet controlled (4) Dyslipidemia Code(s): E78.5 - HYPERLIPIDEMIA, UNSPECIFIED Status: Chronic (5) HTN (hypertension) Code(s): I10 - ESSENTIAL (PRIMARY) HYPERTENSION Status: Chronic Qualifiers: Hypertension type: essential hypertension Qualified Code(s): I10 - Essential (primary) hypertension Comment: (6) Spinal stenosis Code(s): M48.00 - SPINAL STENOSIS, SITE UNSPECIFIED Status: Chronic Qualifiers: Spinal region: lumbar Neurogenic claudication status: without neurogenic claudication Qualified Code(s): M48.061 - Spinal stenosis, lumbar region without neurogenic claudication (7) Schizoaffective disorder Code(s): F25.9 - SCHIZOAFFECTIVE DISORDER, UNSPECIFIED Status: Suspected Qualifiers: Schizoaffective disorder type: unspecified Qualified Code(s): F25.9 - Schizoaffective disorder, unspecified Comment: with hallucinations (8) Seizure Code(s): R56.9 - UNSPECIFIED CONVULSIONS Status: Resolved (9) Suicidal intent Code(s): R45.851 - SUICIDAL IDEATIONS Status: Resolved - Plan cont current plan of care, social media strategist * depakote 1000 mg bedtime and 500 mg daily in morning started to stabilize mood * await shabbir bed * medication reviewed as below * symptomatic treatment. Review of Systems - Review of Systems ENT: negative: Ear Pain, Ear Discharge, Nose Pain, Nose Discharge, Nose Congestion, Mouth Pain, Mouth Swelling, Throat Pain, Throat Swelling, Other Respiratory: negative: Cough, Dry, Shortness of Breath, Hemoptysis, SOB with Excertion, Pleuritic Pain, Sputum, Wheezing Cardiovascular: negative: Chest Pain, Palpitations, Orthopnea, Paroxysmal Noc. Dyspnea, Edema, Light Headedness, Other Gastrointestinal: negative: Nausea, Vomiting, Abdominal Pain, Diarrhea, Constipation, Melena, Hematochezia, Other Genitourinary: negative: Dysuria, Frequency, Incontinence, Hematuria, Retention , Other Musculoskeletal: negative: Neck Pain, Shoulder Pain, Arm Pain, Back Pain, Hand Pain, Leg Pain, Foot Pain, Other Skin: negative: Rash, Lesions, Francis, Bruising, Other - Medications/Allergies Allergies/Adverse Reactions: Allergies Allergy/AdvReac Type Severity Reaction Status Date / Time alprazolam [From Xanax] Allergy Verified 07/14/17 00:07 haloperidol [From Haldol] Allergy Verified 07/14/17 00:07 zolpidem [From Ambien] Allergy Verified 07/14/17 02:35 Medications: Current Medications Acetaminophen (Tylenol) 1,000 mg PO Q6H PRN PRN Reason: Headache Last Admin: 07/29/17 12:45 Dose: 1,000 mg Benzonatate (Tessalon) 100 mg PO Q4H PRN PRN Reason: Cough Clonazepam (Klonopin) 0.5 mg PO BID [facility] Last Admin: 07/29/17 09:14 Dose: 0.5 mg Clonidine (Catapres) 0.1 mg PO Q4H PRN PRN Reason: Systolic BP > 180 Dextrose/Water (Dextrose 50%) 25 gm SLOW IVP PRN PRN PRN Reason: Hypoglycemia Divalproex Sodium (Depakote) 1,000 mg PO HS [facility] Last Admin: 07/28/17 23:16 Dose: 1,000 mg Divalproex Sodium (Depakote) 500 mg PO QAM [facility] Last Admin: 07/29/17 09:13 Dose: 500 mg Escitalopram Oxalate (Lexapro) 20 mg PO DAILY [facility] Last Admin: 07/29/17 09:14 Dose: 20 mg Glucagon (Glucagon) 1 mg IM PRN PRN PRN Reason: Hypoglycemia Guaifenesin (Robitussin Sf) 200 mg PO Q4H PRN PRN Reason: Cough Hydralazine HCl (Apresoline) 10 mg SLOW IVP Q4H PRN PRN Reason: Systolic BP > 180 Dextrose/Water (D5w) 1,000 mls @ 0 mls/hr IV .Q0M PRN; As Directed PRN Reason: Hypoglycemia Insulin Human Regular (Humulin R) 0 units SC .MODERATE SLIDING SC PRN PRN Reason: Moderate Correctional Scale Last Admin: 07/26/17 06:11 Dose: 4 unit Insulin Human Regular (Humulin R) 0 units SC .BEDTIME SLIDING SC PRN PRN Reason: Bedtime Correctional Scale Lorazepam (Ativan) 2 mg SLOW IVP Q15M PRN PRN Reason: SEIZURE ACTIVITY Last Admin: 07/27/17 12:35 Dose: 2 mg Lorazepam (Ativan) 1 mg PO Q6H PRN PRN Reason: Anxiety Last Admin: 07/28/17 16:06 Dose: 1 mg Nitroglycerin (Nitrostat) 0.4 mg SL Q5MIN PRN PRN Reason: Chest Pain Ondansetron HCl (Zofran) 4 mg IVP Q6H PRN PRN Reason: Nausea/Vomiting Ondansetron HCl (Zofran Odt) 4 mg SL Q6H PRN PRN Reason: Nausea/Vomiting Last Admin: 07/20/17 06:23 Dose: 4 mg Valbenazine Tosylate ([Ingrezza] 40 Mg) 0 each PO DAILY [facility] Last Admin: 07/29/17 09:14 Dose: Not Given Senna (Senokot) 2 tab PO HSPRN PRN PRN Reason: Constipation Sodium Chloride (Flush - Normal Saline) 10 ml IVF Q12HR [facility] Last Admin: 07/29/17 09:15 Dose: 10 ml Sodium Chloride (Flush - Normal Saline) 10 ml IVF PRN PRN PRN Reason: Saline Flush
[2017-07-29] MEDS: Lorazepam 1 MG TAB PO PRN ×2 (16:46→21:18)
--- NOTE | 2017-07-30 06:02 | PDOC.PN ---
- Subjective Encounter Start Date: 07/30/17 Encounter Start Time: 06:01 Patient seen and examined. No new complaints. No overnight events - Objective MAR Reviewed: Yes Vital Signs & Weight: Vital Signs (12 hours) Temp Pulse Resp BP Pulse Ox 07/29/17 20:00 98.3 F 71 18 140/78 99 Weight Admit Weight 200 lb 4.8 oz Weight 216 lb I&O: 07/28/17 07/29/17 07/30/17 06:59 06:59 06:59 Intake Total 3060 1300 1320 Balance 3060 1300 1320 Result Diagrams: 07/23/17 06:21 07/23/17 06:21 Additional Labs: Accuchecks 07/30/17 07/29/17 07/29/17 05:21 19:24 16:21 POC Glucose 137 H 117 H 124 H 07/29/17 12:20 POC Glucose 92 Phys Exam - Physical Examination Constitutional: NAD HEENT: PERRLA, moist MMs, sclera anicteric Neck: no JVD, supple Respiratory: no wheezing, no rales, no rhonchi Cardiovascular: RRR, no significant murmur, no rub Gastrointestinal: soft, non-tender, no distention, positive bowel sounds Musculoskeletal: no edema, pulses present Neurological: non-focal, normal sensation Psychiatric: normal affect, A&O x 3 Skin: no rash, normal turgor Dx/Plan (1) Suicidal intent Code(s): R45.851 - SUICIDAL IDEATIONS Status: Acute (2) Schizoaffective disorder Code(s): F25.9 - SCHIZOAFFECTIVE DISORDER, UNSPECIFIED Status: Acute Qualifiers: Schizoaffective disorder type: unspecified Qualified Code(s): F25.9 - Schizoaffective disorder, unspecified Comment: with hallucinations (3) Orthostasis Code(s): I95.1 - ORTHOSTATIC HYPOTENSION Status: Resolved Comment: (4) Pseudoseizures Code(s): F44.5 - CONVERSION DISORDER WITH SEIZURES OR CONVULSIONS Status: Resolved Comment: (5) DM2 (diabetes mellitus, type 2) Status: Chronic Qualifiers: Diabetes mellitus complication status: without complication Diabetes mellitus termite exterminator helper insulin use: without termite exterminator helper use Qualified Code(s): E11.9 - Type 2 diabetes mellitus without complications Comment: diet controlled (6) Dyslipidemia Code(s): E78.5 - HYPERLIPIDEMIA, UNSPECIFIED Status: Chronic (7) HTN (hypertension) Code(s): I10 - ESSENTIAL (PRIMARY) HYPERTENSION Status: Chronic Qualifiers: Hypertension type: essential hypertension Qualified Code(s): I10 - Essential (primary) hypertension Comment: (8) Spinal stenosis Code(s): M48.00 - SPINAL STENOSIS, SITE UNSPECIFIED Status: Chronic Qualifiers: Spinal region: lumbar Neurogenic claudication status: without neurogenic claudication Qualified Code(s): M48.061 - Spinal stenosis, lumbar region without neurogenic claudication (9) Seizure Code(s): R56.9 - UNSPECIFIED CONVULSIONS Status: Resolved - Plan cont current plan of care, director of social work * pt is waiting for shabbir bed * once available will plan for discharge * medication reviewed as below * symptomatic treatment. * medically stable with current treatment Review of Systems - Review of Systems ENT: negative: Ear Pain, Ear Discharge, Nose Pain, Nose Discharge, Nose Congestion, Mouth Pain, Mouth Swelling, Throat Pain, Throat Swelling, Other Respiratory: negative: Cough, Dry, Shortness of Breath, Hemoptysis, SOB with Excertion, Pleuritic Pain, Sputum, Wheezing Cardiovascular: negative: Chest Pain, Palpitations, Orthopnea, Paroxysmal Noc. Dyspnea, Edema, Light Headedness, Other Gastrointestinal: negative: Nausea, Vomiting, Abdominal Pain, Diarrhea, Constipation, Melena, Hematochezia, Other Genitourinary: negative: Dysuria, Frequency, Incontinence, Hematuria, Retention , Other Musculoskeletal: negative: Neck Pain, Shoulder Pain, Arm Pain, Back Pain, Hand Pain, Leg Pain, Foot Pain, Other - Medications/Allergies Allergies/Adverse Reactions: Allergies Allergy/AdvReac Type Severity Reaction Status Date / Time alprazolam [From Xanax] Allergy Verified 07/14/17 00:07 haloperidol [From Haldol] Allergy Verified 07/14/17 00:07 zolpidem [From Ambien] Allergy Verified 07/14/17 02:35 Medications: Current Medications Acetaminophen (Tylenol) 1,000 mg PO Q6H PRN PRN Reason: Headache Last Admin: 07/29/17 21:22 Dose: 1,000 mg Benzonatate (Tessalon) 100 mg PO Q4H PRN PRN Reason: Cough Clonazepam (Klonopin) 0.5 mg PO BID [facility] Last Admin: 07/29/17 21:17 Dose: 0.5 mg Clonidine (Catapres) 0.1 mg PO Q4H PRN PRN Reason: Systolic BP > 180 Dextrose/Water (Dextrose 50%) 25 gm SLOW IVP PRN PRN PRN Reason: Hypoglycemia Divalproex Sodium (Depakote) 1,000 mg PO HS [facility] Last Admin: 07/29/17 21:17 Dose: 1,000 mg Divalproex Sodium (Depakote) 500 mg PO QAM [facility] Last Admin: 07/29/17 09:13 Dose: 500 mg Escitalopram Oxalate (Lexapro) 20 mg PO DAILY [facility] Last Admin: 07/29/17 09:14 Dose: 20 mg Glucagon (Glucagon) 1 mg IM PRN PRN PRN Reason: Hypoglycemia Guaifenesin (Robitussin Sf) 200 mg PO Q4H PRN PRN Reason: Cough Hydralazine HCl (Apresoline) 10 mg SLOW IVP Q4H PRN PRN Reason: Systolic BP > 180 Dextrose/Water (D5w) 1,000 mls @ 0 mls/hr IV .Q0M PRN; As Directed PRN Reason: Hypoglycemia Insulin Human Regular (Humulin R) 0 units SC .MODERATE SLIDING SC PRN PRN Reason: Moderate Correctional Scale Last Admin: 07/26/17 06:11 Dose: 4 unit Insulin Human Regular (Humulin R) 0 units SC .BEDTIME SLIDING SC PRN PRN Reason: Bedtime Correctional Scale Lorazepam (Ativan) 2 mg SLOW IVP Q15M PRN PRN Reason: SEIZURE ACTIVITY Last Admin: 07/27/17 12:35 Dose: 2 mg Lorazepam (Ativan) 1 mg PO Q6H PRN PRN Reason: Anxiety Last Admin: 07/29/17 21:18 Dose: 1 mg Nitroglycerin (Nitrostat) 0.4 mg SL Q5MIN PRN PRN Reason: Chest Pain Ondansetron HCl (Zofran) 4 mg IVP Q6H PRN PRN Reason: Nausea/Vomiting Ondansetron HCl (Zofran Odt) 4 mg SL Q6H PRN PRN Reason: Nausea/Vomiting Last Admin: 07/20/17 06:23 Dose: 4 mg Valbenazine Tosylate ([Ingrezza] 40 Mg) 0 each PO DAILY [facility] Last Admin: 07/29/17 09:14 Dose: Not Given Senna (Senokot) 2 tab PO HSPRN PRN PRN Reason: Constipation Sodium Chloride (Flush - Normal Saline) 10 ml IVF Q12HR [facility] Last Admin: 07/29/17 21:17 Dose: Not Given Sodium Chloride (Flush - Normal Saline) 10 ml IVF PRN PRN PRN Reason: Saline Flush
[2017-07-30 07:53] VITALS: BMI 34.4
[2017-07-30] MEDS: Escitalopram Oxalate 20 mg Tablet PO SCH (08:07)
[2017-07-30] MEDS: Divalproex Sodium DR 500 MG TAB PO SCH ×2 (08:07→20:15)
[2017-07-30] MEDS: clonazePAM 0.5 MG TAB PO SCH ×2 (08:07→20:15)
[2017-07-30] MEDS: Valbenazine Tosylate [Ingrezza] 40 MG PO SCH (08:08)
[2017-07-31] MEDS: Lorazepam 1 MG TAB PO PRN (05:40)
[2017-07-31] MEDS: Escitalopram Oxalate 20 mg Tablet PO SCH (08:20)
[2017-07-31] MEDS: clonazePAM 0.5 MG TAB PO SCH ×2 (08:20→20:46)
[2017-07-31] MEDS: Divalproex Sodium DR 500 MG TAB PO SCH ×2 (08:20→20:46)
[2017-07-31] MEDS: Valbenazine Tosylate [Ingrezza] 40 MG PO SCH (08:21)
--- NOTE | 2017-07-31 14:51 | PDOC.PN ---
- Subjective Encounter Start Date: 07/31/17 Encounter Start Time: 14:49 Ms. Frankel was seen today in follow-up of seizure disorder and suicidal ideation. she is currently doing well, and her main concern isbeing started back on all her prior medications. - Objective MAR Reviewed: Yes Vital Signs & Weight: Vital Signs (12 hours) Temp Pulse Resp BP BP BP Pulse Ox 07/31/17 11:42 80 16 141/90 H 95 07/31/17 11:39 69 16 132/71 94 L 07/31/17 11:35 98.1 F 72 16 134/74 92 L 07/31/17 08:00 98.2 F 66 16 96 07/31/17 07:09 98.2 F 66 16 123/73 94 L Weight Admit Weight 200 lb 4.8 oz Weight 216 lb 0.848 oz I&O: 07/30/17 07/31/17 08/01/17 06:59 06:59 06:59 Intake Total 1820 2360 Balance 1820 2360 Result Diagrams: 07/23/17 06:21 07/23/17 06:21 Additional Labs: Accuchecks 07/31/17 07/31/17 07/30/17 11:44 04:30 20:33 POC Glucose 179 H 105 132 H 07/30/17 16:29 POC Glucose 122 H Phys Exam - Physical Examination HEENT: PERRLA Respiratory: no wheezing, no rales, no rhonchi, clear to auscultation bilateral Cardiovascular: RRR, no significant murmur Gastrointestinal: soft, non-tender, positive bowel sounds Musculoskeletal: no edema Dx/Plan (1) Schizoaffective disorder Code(s): F25.9 - SCHIZOAFFECTIVE DISORDER, UNSPECIFIED Status: Acute Qualifiers: Schizoaffective disorder type: unspecified Qualified Code(s): F25.9 - Schizoaffective disorder, unspecified Comment: with hallucinations (2) Suicidal intent Code(s): R45.851 - SUICIDAL IDEATIONS Status: Acute (3) DM2 (diabetes mellitus, type 2) Status: Chronic Qualifiers: Diabetes mellitus complication status: without complication Diabetes mellitus oil heaterman insulin use: without oil heaterman use Qualified Code(s): E11.9 - Type 2 diabetes mellitus without complications Comment: diet controlled (4) HTN (hypertension) Code(s): I10 - ESSENTIAL (PRIMARY) HYPERTENSION Status: Chronic Qualifiers: Hypertension type: essential hypertension Qualified Code(s): I10 - Essential (primary) hypertension Comment: (5) Pseudoseizures Code(s): F44.5 - CONVERSION DISORDER WITH SEIZURES OR CONVULSIONS Status: Resolved Comment: - Plan * Suicidal Ideation- patient is clinically stable, awaiting a bed at [facility] * Seizure disorder vs. Pseudo seizure- stable * DM- blood glucose is controlled- will re-start Metformin * HTN.- blood pressure is slightly elevated - will re-start Lisinopril
[2017-07-31] MEDS: metFORMIN 500 MG TAB PO SCH (17:57)
[2017-07-31] MEDS: levETIRAcetam 500 MG TAB PO SCH (20:46)
[2017-08-01] MEDS ORDERED: Levothyroxine Sodium 100 MCG TAB PO SCH (06:00)
[2017-08-01 08:43] VITALS: BP 134/67; TEMP 98.1
[2017-08-01] MEDS ORDERED: Lisinopril 10 MG TAB PO SCH (09:00)
[2017-08-01] MEDS ORDERED: clonazePAM 0.5 MG TAB PO SCH (09:00)
--- NOTE | 2017-08-01 09:44 | PDOC.PN ---
- Subjective Encounter Start Date: 08/01/17 Encounter Start Time: 09:43 Ms. Frankel was seen today in follow-up of suicidal ideation. she does not have any complaints other than she is very concerned almost fixated on her medications. she is afraid that she will be overmedicated when she goes to [facility]. - Objective MAR Reviewed: Yes Vital Signs & Weight: Vital Signs (12 hours) Temp Pulse Resp BP BP Pulse Ox 08/01/17 08:00 98.1 F 67 18 134/67 94 L 08/01/17 04:00 97.5 F L 74 20 112/66 94 L 08/01/17 00:00 97.5 F L 76 20 140/77 98 Weight Admit Weight 200 lb 4.8 oz Weight 195 lb 6.4 oz I&O: 07/31/17 08/01/17 08/02/17 06:59 06:59 06:59 Intake Total 2360 3800 Balance 2360 3800 Result Diagrams: 07/23/17 06:21 07/23/17 06:21 Additional Labs: Accuchecks 08/01/17 07/31/17 07/31/17 04:19 19:35 16:08 POC Glucose 106 162 H 134 H 07/31/17 11:44 POC Glucose 179 H Phys Exam - Physical Examination HEENT: PERRLA Respiratory: no rales, no rhonchi, wheezing present + occasional light wheeze Cardiovascular: RRR Gastrointestinal: soft, non-tender, positive bowel sounds Musculoskeletal: no edema Dx/Plan (1) Schizoaffective disorder Code(s): F25.9 - SCHIZOAFFECTIVE DISORDER, UNSPECIFIED Status: Acute Qualifiers: Schizoaffective disorder type: unspecified Qualified Code(s): F25.9 - Schizoaffective disorder, unspecified Comment: with hallucinations (2) Suicidal intent Code(s): R45.851 - SUICIDAL IDEATIONS Status: Acute (3) DM2 (diabetes mellitus, type 2) Status: Chronic Qualifiers: Diabetes mellitus complication status: without complication Diabetes mellitus residential insulin use: without intermodal dispatcher use Qualified Code(s): E11.9 - Type 2 diabetes mellitus without complications Comment: diet controlled (4) HTN (hypertension) Code(s): I10 - ESSENTIAL (PRIMARY) HYPERTENSION Status: Chronic Qualifiers: Hypertension type: essential hypertension Qualified Code(s): I10 - Essential (primary) hypertension Comment: (5) Pseudoseizures Code(s): F44.5 - CONVERSION DISORDER WITH SEIZURES OR CONVULSIONS Status: Resolved Comment: - Plan * Suicidal ideation- she has a sitter in the room. Awaiting transfer to [facility] * Seizure- this was evaluated by Neurology, and felt to be non-convulsive motor activity * HTN- blood pressure is controlled * DM- blood glucose is stable * Medically stable for transfer to [facility] when bed available.
[2017-08-01] MEDS: metFORMIN 500 MG TAB PO SCH (10:29)
[2017-08-01] MEDS: Divalproex Sodium DR 500 MG TAB PO SCH (10:30)
[2017-08-01] MEDS: levETIRAcetam 500 MG TAB PO SCH (10:33)
[2017-08-01] MEDS: Escitalopram Oxalate 20 mg Tablet PO SCH (10:33)
[2017-08-01] MEDS: Valbenazine Tosylate [Ingrezza] 40 MG PO SCH (10:35)
--- NOTE | 2017-08-01 12:35 | DIS ---
DATE OF ADMISSION: 07/14/2017 DATE OF DISCHARGE: 08/01/2017 PRIMARY CARE PHYSICIAN: Dr. Fletcher. DISCHARGE DIAGNOSES: 1. Bipolar disorder with suicidal ideation. 2. Diabetes mellitus, type 2. 3. Seizure disorder. 4. Hypertension. 5. Dyslipidemia. 6. Hypothyroidism. DISCHARGE MEDICATIONS: She is to continue her home medications including Ingrezza 80 mg daily, prava statin 40 mg at bedtime, metformin which was reduced to 500 mg daily, lisinopril 10 mg daily, levothy roxine 100 mcg daily, Keppra 500 mg twice a day, hydroxyzine 50 mg at bedtime, glipizide was held due to lower blood sugars, Lexapro 20 mg daily, and clonazepam 0.5 mg twice a day. PROCEDURES DONE DURING ADMISSION: The patient had a CT scan of the brain which did not show any acut e intracranial abnormality. This was done on 07/13/2017 and then again on 07/24/2017. CODE STATUS: FULL CODE. ALLERGIES: To ALPRAZOLAM, HALOPERIDOL, and ZOLPIDEM. HOSPITAL COURSE: Ms. Frankel is a 57-year-old female who was sent over from the [facility] after she suffered some tonic-clonic like muscle movements. There was concern that this cou ld be a seizure. She was evaluated by Neurology and it was felt that the motor movements were non-co nvulsive in nature and would constitute no further workup. It is noted that the seizure did occur on the day that she was approved to go to [facility]. There is some concern for secondary g ain. She had an uneventful course in our hospital. On the day of discharge, the patient began compl aining of some weakness on the facial muscles and slurred speech; however, when distracted and when c ompleting a cranial nerve exam, all of her cranial nerves II-XII were intact. She was able to smile and lift her both eyebrows, closed her eyes completely. She may have a very small or very minimal Be ll's palsy, but I suspect this could be possibly concerned about being once again transferred to [place]. She is clinically stable and has been approved to go to the [facility].
--- NOTE | 2017-08-03 14:34 | EKG ---
Test Reason : Blood Pressure : / mmHG Vent. Rate : 063 BPM Atrial Rate : 063 BPM P-R Int : 164 ms QRS Dur : 080 ms QT Int : 434 ms P-R-T Axes : 042 042 031 degrees QTc Int : 444 ms Normal sinus rhythm Nonspecific T wave abnormality Abnormal ECG No previous ECGs available Confirmed by RASHAD MUSTAFA (2) on 08/03/2017 2:34:28 PM Referred By: GONZALO Confirmed By:RASHAD MUSTAFA
== END 2017-08-01 14:13 | DRG 880 ==
LOC: ERS 18:56 → 2SE 07-14 00:13 → T4-B 07-18 15:17 → 2NO 07-24 02:42 → T4-B 07-25 14:03
PROVIDERS: ADMIT Internal Medicine; ATTEND Internal Medicine
DX: F44.5 Conversion disorder with seizures or convulsions (principal); R45.851 Suicidal ideations; F25.9 Schizoaffective disorder, unspecified; N39.0 Urinary tract infection, site not specified; G40.909 Epilepsy, unspecified, not intractable, without status epilepticus; E11.9 Type 2 diabetes mellitus without complications; I10 Essential (primary) hypertension; E03.9 Hypothyroidism, unspecified; E78.5 Hyperlipidemia, unspecified; F31.9 Bipolar disorder, unspecified; Z88.8 Allergy status to other drugs, medicaments and biological substances; Z79.84 Long term (current) use of oral hypoglycemic drugs; I95.1 Orthostatic hypotension; M48.061 Spinal stenosis, lumbar region without neurogenic claudication; F41.9 Anxiety disorder, unspecified
CPT/HCPCS: 36415; 36416; 51701; 70450; 71010; 80048; 80053; 80177; 81003; 81015; 84146; 84443; 85025; 87086; 93005; 93010; 95816; 95819; 96361; 96365; 96375; A4216; A4353; G8996-GN-CJ; G8996-GN-CK; G8996-GN-CM; G8997-GN-CI; G8997-GN-CJ; J0696; J1815; J1953; J2060; Q0162; Q0177